=== PATIENT | female | born 1955 | race Caucasian/White ===

== ENCOUNTER 2018-10-21 14:06 | Inpatient (IN) | payer MEDICAID ==
--- NOTE | 2018-10-21 14:25 | ED Physician Chart ---
ED Chief Complaint/HPI - Patient Information Date Seen:: 10/21/18 Time Seen:: 14:30 Chief Complaint:: AMS History of Present Illness:: onset x 3 days of AMS/ALOC with abnormal labs today; no report of trauma, H/As, S/T, neck pain, cough, C/P, SOB, Abd. Pain, or urinary s/s Historian:: Patient, EMS Review:: Nurse's Note Reviewed, Old Chart Reviewed, EMS run form Reviewed ED Review of Systems - Review of Systems General/Constitutional: No fever, No chills, No weight loss, Weakness, No diaphoresis, No edema, No loss of appetite Skin: No skin lesions, No rash, No bruising Head: No headache, No light-headedness Eyes: No loss of vision, No pain, No diplopia ENT: No earache, No nasal drainage, No sore throat, No tinnitus Neck: No neck pain, No swelling, No thyromegaly, No stiffness, No mass noted Cardio Vascular: No chest pain, No palpitations, No PND, No orthopnea, No edema Pulmonary: No SOB, No cough, No sputum, No wheezing GI: No nausea, No vomiting, No diarrhea, No pain, No melena, No hematochezia, No constipation, No hematemesis G/U: No dysuria, No frequency, No hematuria, No nacturia Therapeutic Recreation Assistant: No vaginal discharge, No abnormal vaginal bleed, No contraction Musculoskeletal: No bone or joint pain, No back pain, No muscle pain Endocrine: No polyuria, No polydipsia Psychiatric: No prior psych history, No depression, No anxiety, No suicidal ideation, No homicidal ideation, No auditory hallucination, No visual hallucination Hematopoietic: No bruising, No lymphadenopathy Allergic/Immuno: No urticaria, No angioedema Neurological: No syncope, No focal symptoms, No weakness, No paresthesia, No headache, No seizure, No dizziness, No confusion, No vertigo ED Past Medical History - Past Medical History Obtainable: Yes Past Medical History: HTN, Dementia Family History: HTN Social History: Non Smoker, No Alcohol, No Drug Use, , Care Facility Surgical History: None Psychiatricy History: Dementia Medication: Reviewed Family Medical History - Family Member Mother History Unknown: Yes ED Physical Exam - Physical Examination General/Constitutional: Awake, Well-developed, well-nourished, Alert, No distress, GCS 15, Non-toxic appearing, Ambulatory Head: Atraumatic Eyes: Lids, conjuctiva normal, PERRL, EOMI Skin: Nl inspection, No rash, No skin lesions, No ecchymosis, Well hydrated, No lymphadenopathy ENMT: External ears, nose nl, TM canals nl, Nasal exam nl, Lips, teeth, gums nl , Oropharynx nl, Tonsils nl Neck: Nontender, Full ROM w/o pain, No JVD, No nuchal rigidity, No bruit, No mass, No stridor Other Neck comments:: supple; no meningeal signs; no cervical tenderness; no bruits Respiratory: Nl effort/Exclusion, Clear to Auscultation, No Wheeze/Rhonchi/Rales Cardio Vascular: RRR, No murmur, gallop, rubs, NL S1 S2, Carotid/Femoral/Distal pulses equal bilaterally GI: No tenderness/rebounding/guarding, No organomegaly, No hernia, Normal BS's, Nondistended, No mass/bruits, No McBurney tenderness Other GI comments:: no pulsatile masses : No CVA tenderness Extremities: No tenderness or effusion, Full ROM, normal strength in all extremities, No edema, Normal digits & nails Neuro/Psych: Alert/oriented, DTR's symmetric, Normal sensory exam, Normal motor strength, Judgement/insight normal, Mood normal, Normal gait, No focal deficits Misc: Normal back, No paraspinal tenderness ED Labs/Radiology/EKG Results - Lab Results Comments:: Reviewed - Radiology Results Comments:: CXR: COPD; NAD - EKG Interpretations EKG Time:: 14:28 Rate & Rhythm: 83; NSR Comments:: non-specific st-t changes ED Septic Shock - . Is Septic Shock (SBP<90, OR Lactate>4 mmol\L) present?: No ED Reassessment (Disposition) - Reassessment Reassessment Condition:: Improved - Diagnosis Diagnosis:: Anemia; Dehydration; Hypercalcemia; Hypoalbuminemia; Fever; Dementia; COPD; Hematuria; UTI; Sepsis - Aftercare/Follow up Instructions Aftercare/Follow-Up Instructions:: Counseled pt regarding lab results/diagnosis & need follow up, Counseled pt & family regarding lab results/diagnosis & need follow up - Patient Disposition Discharge/Transfer:: Acute Care w/in this hosp Accepting Physician:: Dr. Hodges Time Called:: 1600 Time Responded:: 16:00 Admitted to:: Med/Surg Spoke to:: Dr. Hodges Admitting Medical Physician:: Dr. Hodges Condition at Disposition:: Stable, Improved
--- NOTE | 2018-10-21 14:35 | Diagnostic Imaging Report ---
CHEST X-RAY: AP view INDICATION: pain COMPARISON: None FINDINGS: There is a large 4.6 cm mass of the right mid to upper lung. No pleural effusions. COPD changes are noted. Heart size normal. Degenerative changes of the spine are noted with scoliosis. No patient is mildly rotated. A catheter is noted possibly a shunt catheter. IMPRESSION: 4.6 cm mass along the right mid to right upper lung. Findings may be due to neoplastic process or less likely infectious process. Further assessment CT with IV contrast is recommended. Probable COPD changes. Results were relayed to the referring team on 10/21/2018 at 2:30 PM.
[2018-10-21 15:01] LABS: MEAN PLATELET VOLUME 8.3 fl; MONOCYTE ABSOLUTE 0.6 Th/cmm (0.3-1.0); RED CELL DISTRIBUTION WIDTH 17.3 % (11.5-20.0)
[2018-10-21 15:04] LABS: % BASOPHILS 0.5 % (0.0-2.0); % EOSINOPHILS 0.8 % (0.0-5.0); % MONOCYTES 8.8 % (2.0-10.0); % NEUTROPHILS 66.9 % (40.0-80.0); EOSINOPHILE ABSOLUTE 0.1 Th/cmm (0.1-0.4); HEMATOCRIT 26.7 % (41.0-60); HEMOGLOBIN 8.5 gm/dL (12-16); LYMPHOCYTE ABSOLUTE 1.6 Th/cmm (1.5-3.0); MEAN CORPUSCULAR HEMOGLOBIN 21.2 pg (27.0-31.0); MEAN CORPUSCULAR HGB CONC 31.7 pg (28.0-36.0); NEUTROPHILE ABSOLUTE 4.7 Th/cmm (1.8-8.0); PLATELET COUNT 613 Th/cmm (150-400)
[2018-10-21 15:12] LABS: INR 1.02 (0.5-1.4); PROTHROMBIN TIME (TEST) 10.6 SECONDS (9.5-11.5)
[2018-10-21 15:14] LABS: ALB/GLOB RATIO 0.7 (1.0-1.8); ALBUMIN 3.1 gm/dL (3.7-5.3); ALKALINE PHOSPHATASE 140 U/L (34-104); ANION GAP 10.4 (7.0-16.0); BILIRUBIN,TOTAL 0.3 mg/dL (0.3-1.0); BUN - UREA NITROGEN 27 mg/dL (7-25); CALCIUM SERUM 10.6 mg/dL (8.6-10.3); CHLORIDE 108 mEq/L (98-107); CREATININE - SERUM 0.7 mg/dL (0.6-1.2); CREATININE KINASE 11 U/L (30-223); GFR AFRICAN-AMERICAN > 60.0 ml/min (>90); GFR NON AFRICAN-AMERICAN > 60.0 ml/min; GLUCOSE 136 mg/dL (70-105); POTASSIUM SERUM 4.4 mEq/L (3.5-5.1); SGOT 15 U/L (13-39); SGPT/ALT 11 U/L (7-52); SODIUM SERUM 140 mEq/L (136-145); TOTAL PROTEIN,SERUM 7.9 gm/dL (6.0-8.3)
[2018-10-21 15:20] LABS: TROP I < 0.01 ng/mL (0.01-0.05)
[2018-10-21 15:22] LABS: MEAN CELL VOLUME 66.8 fl (81-100)
[2018-10-21] MEDS ORDERED: Sodium Chloride 0.9% 1,000 ML IV ONE (15:25)
[2018-10-21 15:28] LABS: URINE SOURCE CATH
[2018-10-21 15:30] LABS: URINE BILIRUBIN NEGATIVE (NEGATIVE); URINE BLOOD TRACE (NEGATIVE); URINE GLUCOSE (UA) NEGATIVE (NEGATIVE); URINE KETONE NEGATIVE (NEGATIVE); URINE LEUKOCYTE ESTERASE TRACE (NEGATIVE); URINE MICROSCOPIC INDICATED? YES; URINE NITRATE NEGATIVE (NEGATIVE); URINE PROTEIN NEGATIVE (NEGATIVE)
[2018-10-21 15:31] LABS: URINE CLARITY CLEAR (CLEAR); URINE COLOR YELLOW
[2018-10-21 15:42] LABS: URINE BACTERIA 1+ /hpf (NONE SEEN); URINE EPITHELIAL CELLS MODERATE /lpf (FEW)
[2018-10-21] MEDS ORDERED: cefTRIAXone 1 GM in Sodium Chloride 0.9% 50 ML IV ONE (15:54)
[2018-10-21] MEDS ORDERED: Haloperidol Lactate 5 mg/mL 1mL Vial IVP ONE (17:25)
[2018-10-21] MEDS ORDERED: Haloperidol Lactate 5 mg/mL 1mL Vial ONE (17:33)
[2018-10-21 22:05] VITALS: BP 165/98
[2018-10-21] MEDS: D5-0.45NS 1,000 ML IV SCH (22:30)
[2018-10-21] MEDS ORDERED: Acetaminophen 500 MG TAB PO PRN (23:47)
[2018-10-21] MEDS ORDERED: Fleet Enema 135 mL RC PRN (23:48)
[2018-10-21] MEDS ORDERED: Magnesium Hydroxide (MOM) 30 mL UDC PO PRN (23:48)
[2018-10-22 06:50] LABS: INR 1.04 (0.5-1.4); PROTHROMBIN TIME (TEST) 10.8 SECONDS (9.5-11.5)
[2018-10-22 07:00] LABS: ANION GAP 9.8 (7.0-16.0); BUN - UREA NITROGEN 20 mg/dL (7-25); CALCIUM SERUM 10.6 mg/dL (8.6-10.3); CARBON DIOXIDE 24.2 mEq/L (21.0-31.0); CHLORIDE 110 mEq/L (98-107); CHOLESTEROL 90 mg/dL (<200); CREATININE - SERUM 0.6 mg/dL (0.6-1.2); GFR AFRICAN-AMERICAN > 60.0 ml/min (>90); GFR NON AFRICAN-AMERICAN > 60.0 ml/min; GLUCOSE 102 mg/dL (70-105); HDL -HIGH DENSITY LIPOPROTEIN 27 mg/dL (23-92); SODIUM SERUM 140 mEq/L (136-145); TRIGLYCERIDES 77 mg/dL (<150)
[2018-10-22 07:03] LABS: % BASOPHILS 0.4 % (0.0-2.0); % EOSINOPHILS 0.9 % (0.0-5.0); % LYMPHOCYTES 36.6 % (20.0-50.0); % MONOCYTES 10.5 % (2.0-10.0); % NEUTROPHILS 51.6 % (40.0-80.0); HEMATOCRIT 26.6 % (41.0-60); HEMOGLOBIN 8.4 gm/dL (12-16); MEAN CORPUSCULAR HEMOGLOBIN 21.1 pg (27.0-31.0); MEAN CORPUSCULAR HGB CONC 31.4 pg (28.0-36.0); MEAN PLATELET VOLUME 8.2 fl; MONOCYTE ABSOLUTE 0.6 Th/cmm (0.3-1.0); NEUTROPHILE ABSOLUTE 2.8 Th/cmm (1.8-8.0); PLATELET COUNT 554 Th/cmm (150-400); RED BLOOD COUNT 3.96 Mil/cmm (3.80-5.10); RED CELL DISTRIBUTION WIDTH 17.8 % (11.5-20.0)
[2018-10-22 07:04] LABS: MEAN CELL VOLUME 67.1 fl (81-100); WHITE BLOOD COUNT 5.4 Th/cmm (4.8-10.8)
[2018-10-22] MEDS: Multivitamin w/ Minerals Tab PO SCH (08:43)
--- NOTE | 2018-10-22 08:43 | History & Physical ---
ADMIT DATE: 10/22/2018 CHIEF COMPLAINT: Altered level of consciousness for 3 days. REVIEW OF SYSTEMS: GENERAL: This is a 63-year-old female. No fever. No weakness. HEAD: No headache or dizziness. EYES: No eye pain, no blurring of vision. NECK: No neck pain. No nuchal rigidity. CHEST: No chest pain or palpitation. PULMONARY: No coughing. No shortness of breath. GASTROINTESTINAL: No abdominal pain, no constipation or diarrhea. MUSCULOSKELETAL: No muscle pain, no joint pain. SOCIAL HISTORY: The patient lives in a [facility] prior to hospitalization. FAMILY HISTORY: Unremarkable. PAST SURGICAL HISTORY: Unremarkable. PAST MEDICAL HISTORY: Includes hypertension, osteoarthritis. PSYCHIATRIC HISTORY: Includes dementia. VITAL SIGNS: Temperature 98.6, heart rate 87, blood pressure 162/85, respirations 18, 97% on room air. PHYSICAL EXAMINATION: GENERAL: This is a 63-year-old female that appears as stated in no acute distress. HEENT: Head is atraumatic and normocephalic. Eyes: Bilateral conjunctivae are clear. Bilateral pupils are equally round and reactive. NECK: Supple. No JVD. CARDIOVASCULAR: S1 and S2, without murmur. PULMONARY: Clear to auscultation. GASTROINTESTINAL: Soft and nontender without guarding. Positive bowel sounds. MUSCULOSKELETAL: No clubbing. No cyanosis noted. ASSESSMENT: 1. Dehydration. 2. Anemia. 3. Chronic obstructive pulmonary disease. 4. Right upper lung mass. 5. Dementia. PLAN: We will admit the patient to inpatient. We will provide 1:1 sitter due to increase in agitation. We will start the patient with IV fluids for rehydration. We will follow up with a right lung mass and consider CT scan of the chest. We will consult with GI for anemia. We will get a psychiatric consult with the medication reconciliation accordingly. Treatment plans were discussed with the patient's nurse. Treatment plans were discussed with Dr. Hodges. JOB# [id number]
[2018-10-22] MEDS ORDERED: Non-Formulary Item 1 EA (Cranberry Fruit [Cranberry] 450 MG) PO SCH (09:00)
[2018-10-22] MEDS ORDERED: VTE Chemical Prophylaxis Screen/Admission MC PRN (09:01)
[2018-10-22] MEDS: Heparin Sod 5,000Units/ML 5,000 UNITS/ML VIAL SUBQ SCH ×2 (09:29→20:55)
--- NOTE | 2018-10-22 10:01 | Diagnostic Imaging Report ---
Exam: CT examination of chest. HISTORY: Right upper lung mass. Total DLP equals 170 CTDI equals 4.5 Findings: Multiple contiguous thin section of the chest were obtained from thoracic outlet to the upper abdomen without the administration of contrast material therefore the study somewhat limited. No prior studies available comparison. There is enlargement of the right lobe of thyroid. Clinical correlation recommended. The study demonstrates a large homogeneous mass in the right upper lung peripherally measuring 4.8 x 3.4 cm in diameter. The mass extends into the right hilar area. The suggestion of the lung neoplasm. The lung parenchyma is well aerated bilaterally. There is no evidence for pneumonia or effusion. Mediastinal structures midline. The aortic arch calcified. Bony structures demonstrate no evidence for lytic or blastic changes. There is evidence for degenerative changes lower thoracic spine with scoliosis to the left and osteophytic spurring and bridging of the distal thoracic vertebrae CT-guided biopsy is recommended. The visualized the upper abdomen demonstrates a low density area in the right lobe of liver measuring 2.7 cm diameter. Clinical correlation CT examination with contrast recommended neoplastic component cannot be excluded. The visualized adrenal glands intact. IMPRESSION: 3.4 x 4.8cm right upper peripheral lung mass extending into the right hilar area. The finding suggestive of neoplasm. CT examination with contrast and CT guided biopsies recommended. Low density area in the liver might represent a cyst also neoplastic component cannot be excluded.
[2018-10-22 13:58] LABS: RBC RETICULOCYTE COUNT 3.96 Mil/cmm
[2018-10-22 13:59] LABS: ABSOLUTE RETICULOCYTE 19.8 Th/cmm; CORRECTED RETICULOCYTE COUNT 0.3 % (0.5-1.5); HEMATOCRIT 26.6 % (33.0-45.0); RETICULOCYTES % COUNTED 0.5 % (0.5-1.5)
[2018-10-22] MEDS: D5-0.45NS 1,000 ML IV SCH (18:33)
--- NOTE | 2018-10-22 21:54 | Consultation ---
DATE OF CONSULTATION: 10/21/2018 REASON FOR CONSULTATION: Severe anemia. HISTORY OF PRESENT ILLNESS: This consult was obtained through the courtesy of Dr. Hodges for this 63-year-old, who presented to the hospital for altered level of consciousness, found to be severely anemic. GI consult was called in for further evaluation. Apparently, the patient lives in a [facility]. She was sent from there for change in mental status and she was found to be anemic here. PAST MEDICAL HISTORY: Hypertension and dementia. PAST SURGICAL HISTORY: Not known, but she has a scar overlying her chest, might be a CABG, but it is not typical scar. She also claims she has some abdominal surgery. SOCIAL HISTORY: Nonsmoker, nonalcoholic, IV drug abuser. FAMILY HISTORY: Noncontributory. ALLERGIES: No known drug allergies. MEDICATIONS: The patient is on Tylenol, bisacodyl, donepezil, subcutaneous heparin, lorazepam, milk of magnesia, Lopressor. REVIEW OF SYSTEMS: Unobtainable, but the patient is thin, cachectic. PHYSICAL EXAMINATION: GENERAL: The patient is awake, oriented to self. VITAL SIGNS: Blood pressure is 114/71, heart rate 90, respiratory rate 18, temperature 99.1. HEAD AND NECK: Pupils reactive to light. Extraocular muscles could not be tested. Oral cavity, no lesion. NECK: Supple. CHEST: Good air entry. There is scar overlying the midline. LUNGS: Clear to auscultation. CARDIOVASCULAR: Regular rate and rhythm. No murmur or gallop. ABDOMEN: Soft, positive bowel sounds, nontender, nondistended, no hepatosplenomegaly. EXTREMITIES: Lower extremities, no edema. CENTRAL NERVOUS SYSTEM: The patient is moving 4 extremities, grossly nonfocal. LABORATORY DATA: Hemoglobin 8.4, hematocrit 26.6. Normal liver enzymes. IMPRESSION: A 63-year-old with severe anemia. ASSESSMENT: Anemia, rule out gastrointestinal blood loss versus hemolysis versus chronic disease. RECOMMENDATIONS: 1. We will check serum iron, TIBC, ferritin, B12, folic acid, and haptoglobin. 2. We will check stool for occult blood. 3. The patient is going to have an endoscopy and colonoscopy most likely Wednesday or Wednesday depending on the availability of consent and feasibility of prep. 4. Other medical problem such as dementia, hypertension, etc. as per Dr. Hodges. Thank you, Dr. Hodges, for allowing me to participate in the care of the patient. If you have any further questions, please let me know. [facility]# [id number]
--- NOTE | 2018-10-22 22:42 | Consultation ---
DATE OF CONSULTATION: 10/22/[address] Hodges. Thank you very much for this consultation. HISTORY OF PRESENT ILLNESS: This is a 63-year-old female, confused, who was called to see for consultation because of abnormal CT of the chest. The patient has some altered level of consciousness. Apparently, she is getting some agitation as well. PAST MEDICAL HISTORY: As above. SOCIAL HISTORY: History of smoking. Says she used to smoke 2 packs a day and now she smokes less than that. A smoker for many years, could not give me the exact number of years. Denies shortness of breath or chest pain. REVIEW OF SYSTEMS: Unable to obtain because of the patient's condition PHYSICAL EXAMINATION: GENERAL: He is awake, alert, not in acute distress. VITAL SIGNS: Temperature 98.3, pulse 80, respirations 18, blood pressure 107/72, saturation 98% on room air. HEENT: Atraumatic, normocephalic. Pupils reactive to light and accommodation. Ears, nose, and throat are normal. NECK: Supple. No JVD. CHEST: There are good breath sounds. No wheezing, no crackles. HEART: Regular rhythm. ABDOMEN: Soft. EXTREMITIES: No edema. LABORATORY DATA: WBC 5.4, hemoglobin 8.4. Sodium 140, potassium 4.0, BUN 20, creatinine 0.6. CT chest: There are right upper lobe lung mass located peripherally. IMPRESSION: This is a 63-year-old female most likely with lung cancer. PLAN: I discussed with the patient, she needs to have a CT-guided biopsy. I am not sure how understanding she is to this diagnosis and to the overall health. I agree with psychiatric evaluation as well and we ordered a CT-guided biopsy. The patient agrees to it. Thank you very much for this consultation. I will follow the patient with you. JOB# [id number]
[2018-10-23 06:42] LABS: % BASOPHILS 0.8 % (0.0-2.0); % EOSINOPHILS 0.6 % (0.0-5.0); % LYMPHOCYTES 44.7 % (20.0-50.0); % MONOCYTES 8.2 % (2.0-10.0); % NEUTROPHILS 45.7 % (40.0-80.0); HEMATOCRIT 27.8 % (41.0-60); HEMOGLOBIN 8.7 gm/dL (12-16); LYMPHOCYTE ABSOLUTE 2.4 Th/cmm (1.5-3.0); MEAN CORPUSCULAR HGB CONC 31.2 pg (28.0-36.0); MEAN PLATELET VOLUME 8.7 fl; MONOCYTE ABSOLUTE 0.4 Th/cmm (0.3-1.0); NEUTROPHILE ABSOLUTE 2.6 Th/cmm (1.8-8.0); PLATELET COUNT 527 Th/cmm (150-400); RED BLOOD COUNT 4.14 Mil/cmm (3.80-5.10); RED CELL DISTRIBUTION WIDTH 17.5 % (11.5-20.0); WHITE BLOOD COUNT 5.4 Th/cmm (4.8-10.8)
[2018-10-23 06:43] LABS: MEAN CELL VOLUME 67.2 fl (81-100)
[2018-10-23 06:56] LABS: ALB/GLOB RATIO 0.6 (1.0-1.8); ALKALINE PHOSPHATASE 142 U/L (34-104); ANION GAP 11.1 (7.0-16.0); BILIRUBIN,TOTAL 0.4 mg/dL (0.3-1.0); BUN - UREA NITROGEN 19 mg/dL (7-25); CALCIUM SERUM 11.2 mg/dL (8.6-10.3); CHLORIDE 111 mEq/L (98-107); CREATININE - SERUM 0.7 mg/dL (0.6-1.2); GFR AFRICAN-AMERICAN > 60.0 ml/min (>90); GFR NON AFRICAN-AMERICAN > 60.0 ml/min; GLUCOSE 99 mg/dL (70-105); POTASSIUM SERUM 4.1 mEq/L (3.5-5.1); SGOT 17 U/L (13-39); SGPT/ALT 14 U/L (7-52); SODIUM SERUM 142 mEq/L (136-145)
[2018-10-23] MEDS ORDERED: Magnesium Citrate 1.75 GM/300 mL Bottle PO ONE (08:00)
[2018-10-23] MEDS: Heparin Sod 5,000Units/ML 5,000 UNITS/ML VIAL SUBQ SCH ×2 (09:08→21:17)
[2018-10-23] MEDS: Multivitamin w/ Minerals Tab PO SCH (09:14)
--- NOTE | 2018-10-23 10:20 | GI Progress Note ---
Subjective - Review of Systems Service Date: 10/23/18 Events since last encounter: nO EVENTS Subjective: No active complaints Objective - Results Result Diagrams: 10/23/18 06:10 10/23/18 06:10 Recent Labs: Laboratory Last Values WBC 5.4 Th/cmm (4.8-10.8) 10/23/18 06:10 RBC 4.14 Mil/cmm (3.80-5.10) 10/23/18 06:10 Hgb 8.7 gm/dL (12-16) L 10/23/18 06:10 Hct 27.8 % (41.0-60) L 10/23/18 06:10 MCV 67.2 fl (81-100) L 10/23/18 06:10 MCH 21.0 pg (27.0-31.0) L 10/23/18 06:10 MCHC Differential 31.2 pg (28.0-36.0) 10/23/18 06:10 RDW 17.5 % (11.5-20.0) 10/23/18 06:10 Plt Count 527 Th/cmm (150-400) H 10/23/18 06:10 MPV 8.7 fl 10/23/18 06:10 Neutrophils % 45.7 % (40.0-80.0) 10/23/18 06:10 Lymphocytes % 44.7 % (20.0-50.0) 10/23/18 06:10 Monocytes % 8.2 % (2.0-10.0) 10/23/18 06:10 Eosinophils % 0.6 % (0.0-5.0) 10/23/18 06:10 Basophils % 0.8 % (0.0-2.0) 10/23/18 06:10 Total Retics Counted 0.5 % (0.5-1.5) 10/22/18 06:25 Absolute Retic 19.8 Th/cmm 10/22/18 06:25 Corrected Retic Count 0.3 % (0.5-1.5) L 10/22/18 06:25 PT 10.8 SECONDS (9.5-11.5) 10/22/18 06:25 INR 1.04 (0.5-1.4) 10/22/18 06:25 PTT (Actin FS) 27.4 SECONDS (26.0-38.0) 10/22/18 06:25 Sodium 142 mEq/L (136-145) 10/23/18 06:10 Potassium 4.1 mEq/L (3.5-5.1) 10/23/18 06:10 Chloride 111 mEq/L (98-107) H 10/23/18 06:10 Carbon Dioxide 24.0 mEq/L (21.0-31.0) 10/23/18 06:10 Anion Gap 11.1 (7.0-16.0) 10/23/18 06:10 BUN 19 mg/dL (7-25) 10/23/18 06:10 Creatinine 0.7 mg/dL (0.6-1.2) 10/23/18 06:10 Est GFR ( Amer) > 60.0 ml/min (>90) 10/23/18 06:10 Est GFR (Non-Af Amer) > 60.0 ml/min 10/23/18 06:10 BUN/Creatinine Ratio 27.1 10/23/18 06:10 Glucose 99 mg/dL (70-105) 10/23/18 06:10 Whole Bld Lactic Acid 1.40 mmol/L (0.60-1.99) 10/21/18 14:45 Calcium 11.2 mg/dL (8.6-10.3) H 10/23/18 06:10 Total Bilirubin 0.4 mg/dL (0.3-1.0) 10/23/18 06:10 AST 17 U/L (13-39) 10/23/18 06:10 ALT 14 U/L (7-52) 10/23/18 06:10 Alkaline Phosphatase 142 U/L (34-104) H 10/23/18 06:10 Creatine Kinase 11 U/L (30-223) L 10/21/18 14:45 Troponin I < 0.01 ng/mL (0.01-0.05) L 10/21/18 14:45 Total Protein 8.0 gm/dL (6.0-8.3) 10/23/18 06:10 Albumin 3.0 gm/dL (3.7-5.3) L 10/23/18 06:10 Globulin 5.0 gm/dL 10/23/18 06:10 Albumin/Globulin Ratio 0.6 (1.0-1.8) L 10/23/18 06:10 Triglycerides 77 mg/dL (<150) 10/22/18 06:25 Cholesterol 90 mg/dL (<200) 10/22/18 06:25 LDL Cholesterol Direct 53 mg/dL (75-193) L 10/22/18 06:25 HDL Cholesterol 27 mg/dL (23-92) 10/22/18 06:25 TSH 0.02 uIU/ml (0.34-5.60) L 10/22/18 06:25 Urine Source CATH 10/21/18 15:20 Urine Color YELLOW 10/21/18 15:20 Urine Clarity CLEAR (CLEAR) 10/21/18 15:20 Urine pH 6.0 (4.6 - 8.0) 10/21/18 15:20 Ur Specific [place] 1.020 (1.005-1.030) 10/21/18 15:20 Urine Protein NEGATIVE mg/dL (NEGATIVE) 10/21/18 15:20 Urine Glucose (UA) NEGATIVE mg/dL (NEGATIVE) 10/21/18 15:20 Urine Ketones NEGATIVE mg/dL (NEGATIVE) 10/21/18 15:20 Urine Blood TRACE (NEGATIVE) 10/21/18 15:20 Urine Nitrate NEGATIVE (NEGATIVE) 10/21/18 15:20 Urine Bilirubin NEGATIVE (NEGATIVE) 10/21/18 15:20 Urine Urobilinogen 1.0 E.U./dL (0.2 - 1.0) 10/21/18 15:20 Ur Leukocyte Esterase TRACE (NEGATIVE) H 10/21/18 15:20 Urine RBC 2-5 /hpf (0-5) 10/21/18 15:20 Urine WBC 2-5 /hpf (0-5) 10/21/18 15:20 Ur Epithelial Cells MODERATE /lpf (FEW) 10/21/18 15:20 Urine Bacteria 1+ /hpf (NONE SEEN) H 10/21/18 15:20 - Physical Exam Vitals and I&O: Vital Signs Temp 98.8 F 10/23/18 05:00 Pulse 66 10/23/18 05:00 Resp 18 10/23/18 05:00 BP 95/52 10/23/18 05:00 Pulse Ox 98 10/23/18 05:00 Intake & Output 0510/23/18 10/23/18 18:59 06:59 18:59 Intake Total 1600 200 Balance 1600 200 Weight (lbs) 45.813 kg 45.813 kg Intake: Intake, IV Amount 1000 D5-0.45NS 1,000 ml @ 50 1000 mls/hr IV .Q20H [facility] Rx#: [id number] Oral 600 200 Other: # Voids 2 2 # Bowel Movements 0 Weight Source Bedscale Bedscale Active Medications: Current Medications Acetaminophen (Tylenol) 650 mg PO Q6H PRN PRN Reason: MILD PAIN OR TEMP > 100.5 Stop: 12/21/18 00:39 Bisacodyl (Dulcolax 10 Mg Supp) 10 mg RC DAILY PRN PRN Reason: IF MOM INEFFECTIVE Stop: 12/20/18 23:46 Donepezil HCl (Aricept) 10 mg PO HS ELLYN Stop: 12/21/18 20:59 Last Admin: 10/22/18 20:55 Dose: 10 mg Heparin Sodium (Porcine) (Heparin) 5,000 units SUBQ Q12HR [facility] Stop: 12/21/18 08:59 Last Admin: 10/23/18 09:08 Dose: 5,000 units Dextrose/Sodium Chloride (D5-0.45ns) 1,000 mls @ 50 mls/hr IV .Q20H [facility] Stop: 12/20/18 21:38 Last Admin: 10/22/18 18:33 Dose: 50 mls/hr Lorazepam (Ativan) 1 mg IVP Q4H PRN; Protocol PRN Reason: Agitation Stop: 12/21/18 08:08 Last Admin: 10/22/18 15:53 Dose: 1 mg Magnesium Hydroxide (Milk Of Magnesia) 30 ml PO HS PRN PRN Reason: Constipation Stop: 12/20/18 23:47 Metoprolol Tartrate (Lopressor) 25 mg PO Q12H ELLYN Stop: 12/20/18 23:44 Last Admin: 10/23/18 00:03 Dose: Not Given Miscellaneous (Vte Chemical Prophylaxis Screen/ Admission) 1 ea MC PRN PRN PRN Reason: PROTOCOL Stop: 12/21/18 09:00 Mupirocin (Bactroban Oint) 1 appl NS BID ELLYN Stop: 10/27/18 17:01 Last Admin: 10/23/18 09:13 Dose: 1 appl Sodium Phosphate (Fleet Enema) 135 ml RC Q48H PRN PRN Reason: IF DULCOLAX INEFFECTIVE Stop: 12/20/18 23:47 General: Alert, No acute distress Neck: Supple Cardiovascular: Regular rate, Normal S1 Lungs: Clear to auscultation Abdomen: Bowel sounds, Soft, no Tender, no Mass Assessment/Plan - Problem List Patient Problems: All Active Problems ABNORMAL LABORATORY FINDINGS (HB, HCT) (Acute) - Assessment Assessment: 1. Severe anemia - Plan Plan: 1. Severe anemia Will need GI w/u after the lung biopsy and if she is willing to take the prep
--- NOTE | 2018-10-23 10:41 | Internal Medicine Prog Note ---
Internal Medicine Subjective - Subjective Patient seen and examined:: chart reviewed Patient is:: awake, confused, other (pt admitted with altered level of consciousness ,with abnormal ct of chest lung mass) Per staff patient has:: no adverse event Internal Medicine Objective - Results Result Diagrams: 10/23/18 06:10 10/23/18 06:10 Recent Labs: Laboratory Last Values WBC 5.4 Th/cmm (4.8-10.8) 10/23/18 06:10 RBC 4.14 Mil/cmm (3.80-5.10) 10/23/18 06:10 Hgb 8.7 gm/dL (12-16) L 10/23/18 06:10 Hct 27.8 % (41.0-60) L 10/23/18 06:10 MCV 67.2 fl (81-100) L 10/23/18 06:10 MCH 21.0 pg (27.0-31.0) L 10/23/18 06:10 MCHC Differential 31.2 pg (28.0-36.0) 10/23/18 06:10 RDW 17.5 % (11.5-20.0) 10/23/18 06:10 Plt Count 527 Th/cmm (150-400) H 10/23/18 06:10 MPV 8.7 fl 10/23/18 06:10 Neutrophils % 45.7 % (40.0-80.0) 10/23/18 06:10 Lymphocytes % 44.7 % (20.0-50.0) 10/23/18 06:10 Monocytes % 8.2 % (2.0-10.0) 10/23/18 06:10 Eosinophils % 0.6 % (0.0-5.0) 10/23/18 06:10 Basophils % 0.8 % (0.0-2.0) 10/23/18 06:10 Total Retics Counted 0.5 % (0.5-1.5) 10/22/18 06:25 Absolute Retic 19.8 Th/cmm 10/22/18 06:25 Corrected Retic Count 0.3 % (0.5-1.5) L 10/22/18 06:25 PT 10.8 SECONDS (9.5-11.5) 10/22/18 06:25 INR 1.04 (0.5-1.4) 10/22/18 06:25 PTT (Actin FS) 27.4 SECONDS (26.0-38.0) 10/22/18 06:25 Sodium 142 mEq/L (136-145) 10/23/18 06:10 Potassium 4.1 mEq/L (3.5-5.1) 10/23/18 06:10 Chloride 111 mEq/L (98-107) H 10/23/18 06:10 Carbon Dioxide 24.0 mEq/L (21.0-31.0) 10/23/18 06:10 Anion Gap 11.1 (7.0-16.0) 10/23/18 06:10 BUN 19 mg/dL (7-25) 10/23/18 06:10 Creatinine 0.7 mg/dL (0.6-1.2) 10/23/18 06:10 Est GFR ( Amer) > 60.0 ml/min (>90) 10/23/18 06:10 Est GFR (Non-Af Amer) > 60.0 ml/min 10/23/18 06:10 BUN/Creatinine Ratio 27.1 10/23/18 06:10 Glucose 99 mg/dL (70-105) 10/23/18 06:10 Whole Bld Lactic Acid 1.40 mmol/L (0.60-1.99) 10/21/18 14:45 Calcium 11.2 mg/dL (8.6-10.3) H 10/23/18 06:10 Total Bilirubin 0.4 mg/dL (0.3-1.0) 10/23/18 06:10 AST 17 U/L (13-39) 10/23/18 06:10 ALT 14 U/L (7-52) 10/23/18 06:10 Alkaline Phosphatase 142 U/L (34-104) H 10/23/18 06:10 Creatine Kinase 11 U/L (30-223) L 10/21/18 14:45 Troponin I < 0.01 ng/mL (0.01-0.05) L 10/21/18 14:45 Total Protein 8.0 gm/dL (6.0-8.3) 10/23/18 06:10 Albumin 3.0 gm/dL (3.7-5.3) L 10/23/18 06:10 Globulin 5.0 gm/dL 10/23/18 06:10 Albumin/Globulin Ratio 0.6 (1.0-1.8) L 10/23/18 06:10 Triglycerides 77 mg/dL (<150) 10/22/18 06:25 Cholesterol 90 mg/dL (<200) 10/22/18 06:25 LDL Cholesterol Direct 53 mg/dL (75-193) L 10/22/18 06:25 HDL Cholesterol 27 mg/dL (23-92) 10/22/18 06:25 TSH 0.02 uIU/ml (0.34-5.60) L 10/22/18 06:25 Urine Source CATH 10/21/18 15:20 Urine Color YELLOW 10/21/18 15:20 Urine Clarity CLEAR (CLEAR) 10/21/18 15:20 Urine pH 6.0 (4.6 - 8.0) 10/21/18 15:20 Ur Specific [place] 1.020 (1.005-1.030) 10/21/18 15:20 Urine Protein NEGATIVE mg/dL (NEGATIVE) 10/21/18 15:20 Urine Glucose (UA) NEGATIVE mg/dL (NEGATIVE) 10/21/18 15:20 Urine Ketones NEGATIVE mg/dL (NEGATIVE) 10/21/18 15:20 Urine Blood TRACE (NEGATIVE) 10/21/18 15:20 Urine Nitrate NEGATIVE (NEGATIVE) 10/21/18 15:20 Urine Bilirubin NEGATIVE (NEGATIVE) 10/21/18 15:20 Urine Urobilinogen 1.0 E.U./dL (0.2 - 1.0) 10/21/18 15:20 Ur Leukocyte Esterase TRACE (NEGATIVE) H 10/21/18 15:20 Urine RBC 2-5 /hpf (0-5) 10/21/18 15:20 Urine WBC 2-5 /hpf (0-5) 10/21/18 15:20 Ur Epithelial Cells MODERATE /lpf (FEW) 10/21/18 15:20 Urine Bacteria 1+ /hpf (NONE SEEN) H 10/21/18 15:20 - Physical Exam Vitals and I&O: Vital Signs Temp 98.6 F 10/23/18 09:00 Pulse 89 10/23/18 09:00 Resp 18 10/23/18 09:00 BP 118/70 10/23/18 09:00 Pulse Ox 95 10/23/18 09:00 Intake & Output 10/22/18 10/23/18 10/23/18 18:59 06:59 18:59 Intake Total 1600 200 Balance 1600 200 Weight (lbs) 45.813 kg 45.813 kg Intake: Intake, IV Amount 1000 D5-0.45NS 1,000 ml @ 50 1000 mls/hr IV .Q20H [facility] Rx#: [id number] Oral 600 200 Other: # Voids 2 2 # Bowel Movements 0 Weight Source Bedscale Bedscale Active Medications: Current Medications Acetaminophen (Tylenol) 650 mg PO Q6H PRN PRN Reason: MILD PAIN OR TEMP > 100.5 Stop: 12/21/18 00:39 Bisacodyl (Dulcolax 10 Mg Supp) 10 mg RC DAILY PRN PRN Reason: IF MOM INEFFECTIVE Stop: 12/20/18 23:46 Donepezil HCl (Aricept) 10 mg PO HS [facility] Stop: 12/21/18 20:59 Last Admin: 10/22/18 20:55 Dose: 10 mg Heparin Sodium (Porcine) (Heparin) 5,000 units SUBQ Q12HR [facility] Stop: 12/21/18 08:59 Last Admin: 10/23/18 09:08 Dose: 5,000 units Dextrose/Sodium Chloride (D5-0.45ns) 1,000 mls @ 50 mls/hr IV .Q20H [facility] Stop: 12/20/18 21:38 Last Admin: 10/22/18 18:33 Dose: 50 mls/hr Lorazepam (Ativan) 1 mg IVP Q4H PRN; Protocol PRN Reason: Agitation Stop: 12/21/18 08:08 Last Admin: 10/22/18 15:53 Dose: 1 mg Magnesium Hydroxide (Milk Of Magnesia) 30 ml PO HS PRN PRN Reason: Constipation Stop: 12/20/18 23:47 Metoprolol Tartrate (Lopressor) 25 mg PO Q12H [facility] Stop: 12/20/18 23:44 Last Admin: 10/23/18 00:03 Dose: Not Given Miscellaneous (Vte Chemical Prophylaxis Screen/ Admission) 1 ea MC PRN PRN PRN Reason: PROTOCOL Stop: 12/21/18 09:00 Mupirocin (Bactroban Oint) 1 appl NS BID [facility] Stop: 10/27/18 17:01 Last Admin: 10/23/18 09:13 Dose: 1 appl Sodium Phosphate (Fleet Enema) 135 ml RC Q48H PRN PRN Reason: IF DULCOLAX INEFFECTIVE Stop: 12/20/18 23:47 General: other (awake confused in no distress) HEENT: NC/AT Neck: Supple Lungs: CTAB Cardiovascular: RRR, Normal S1, Normal S2 Abdomen: soft, non-tender Extremities: clear Neurological: no change Internal Medicine Assmt/Plan - Assessment Assessment: dehydration lung mass r/o lung ca copd dementia - Plan Plan: as per surgeon biopsy sitter for safety psych support as per order sheet Nutritional Asmnt/Malnutr-PDOC - Dietary Evaluation Malnutrition Findings (Please click <Entered> for more info): Nutritional Asmnt/Malnutrition Start: 10/22/18 11: 28 Text: Status: Complete Freq: Protocol: Document 10/22/18 11:28 BIANCA (Rec: 10/22/18 11:44 MMFREDERICK CURRY- [email or web address]) Nutritional Asmnt/Malnutrition Patient General Information Nutritional Screening High Risk Diagnosis Anemia Pertinent Medical Hx/Surgical Hx HTN, osteoarthritis, dementia Subjective Information Patient with 1:1 sitter. 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 Current Diet Order/ Nutrition Support 2gm Sodium Chopped Patient / S.O Not Indicated Pertinent Medications dulcolax, D5-0.45NS @50 ml/hr, MOM, Fleet enema Pertinent Labs (10/22) Ca 10.6 (10/21) Albumin 3.1 Nutritional Hx/Data Height 1.65 m Height (Calculated Centimeters) 165.1 Current Weight (lbs) 42.638 kg Weight (Calculated Kilograms) 42.6 Weight (Calculated Grams) 67109.7 [place] Body Weight 125 % [place] Body Weight 75 Body Mass Index (BMI) 15.6 Recent Weight Change No Weight Status Underweight GI Symptoms GI Symptoms None Last BM none noted in EMR since admission Difficult in: None Food Allergies No Cultural/Ethnic/Hindu Belief None indicated Usual diet at home unknown Skin Integrity/Comment: Meredith 16 Current %PO Good (75-100%) Estimated Nutritional Goals BEE in Kcals: Adj wt of IBW Calories/Kcals/Kg 56.8 IBW 25-30 kcal/kg Kcals Calculated ~0652-0821 kcal/day Protein: Adj wt of IBW Protein g/k.8 gm/kg using IBW Protein Calculated ~45-55 gm/day Fluid: ml ~2168-0155 ml/day (1 ml/kcal) Nutritional Problem 1. Problem Problem Underweight related to Etiology possible inadequate intake aeb Signs/Symptoms: BMI 15.6 Intervention/Recommendation Comments 1. Continue 2gm sodium, chopped diet as tolerated by patient due to HTN. 2. Encourage oral intake and provide assistance with meals as needed. 3. Will hold off on supplements at this time even with low BMI due to patient's adequate oral intake and good appetite. Expected Outcomes/Goals Expected Outcomes/Goals Oral intake >75% of meals, weight gain toward IBW, nutrition related labs WNL F/U MR 10/25-
[2018-10-24] MEDS: Heparin Sod 5,000Units/ML 5,000 UNITS/ML VIAL SUBQ SCH ×2 (09:31→20:42)
[2018-10-24] MEDS: Multivitamin w/ Minerals Tab PO SCH (09:31)
[2018-10-24] MEDS: D5-0.45NS 1,000 ML IV SCH ×2 (09:33→10:39)
--- NOTE | 2018-10-24 10:03 | Progress Notes ---
DATE: 10/23/2018 OBJECTIVE: GENERAL: The patient appears to be confused, does not appear in acute distress. VITAL SIGNS: Temperature 98.4, pulse 76, respirations 18, blood pressure 117/57, saturation 96%. CHEST: Good breath sounds. No wheezes or crackles. HEART: Regular rate and rhythm. ABDOMEN: Soft and nontender. EXTREMITIES: No edema. IMPRESSION: 1. Respiratory: Chronic obstructive pulmonary disease. 2. Lung mass. 3. Psychotic disorder. 4. Dementia. PLAN: The patient needs CT-guided biopsy. The patient appears to understand and is happy with her and I will get addiction social worker involved and see if family is available. Continue supportive care. JOB# [id number]
--- NOTE | 2018-10-24 10:07 | Internal Medicine Prog Note ---
Internal Medicine Subjective - Subjective Service Date: 10/24/18 Patient seen and examined:: with staff Patient is:: awake, confused, other (pt admitted with altered level of consciousness ,with abnormal ct of chest lung mass) Patient Complaints of:: other (weakness.) Per staff patient has:: no adverse event, no episodes of fall Internal Medicine Objective - Results Result Diagrams: 10/23/18 06:10 10/23/18 06:10 Recent Labs: Laboratory Last Values WBC 5.4 Th/cmm (4.8-10.8) 10/23/18 06:10 RBC 4.14 Mil/cmm (3.80-5.10) 10/23/18 06:10 Hgb 8.7 gm/dL (12-16) L 10/23/18 06:10 Hct 27.8 % (41.0-60) L 10/23/18 06:10 MCV 67.2 fl (81-100) L 10/23/18 06:10 MCH 21.0 pg (27.0-31.0) L 10/23/18 06:10 MCHC Differential 31.2 pg (28.0-36.0) 10/23/18 06:10 RDW 17.5 % (11.5-20.0) 10/23/18 06:10 Plt Count 527 Th/cmm (150-400) H 10/23/18 06:10 MPV 8.7 fl 10/23/18 06:10 Neutrophils % 45.7 % (40.0-80.0) 10/23/18 06:10 Lymphocytes % 44.7 % (20.0-50.0) 10/23/18 06:10 Monocytes % 8.2 % (2.0-10.0) 10/23/18 06:10 Eosinophils % 0.6 % (0.0-5.0) 10/23/18 06:10 Basophils % 0.8 % (0.0-2.0) 10/23/18 06:10 Total Retics Counted 0.5 % (0.5-1.5) 10/22/18 06:25 Absolute Retic 19.8 Th/cmm 10/22/18 06:25 Corrected Retic Count 0.3 % (0.5-1.5) L 10/22/18 06:25 PT 10.8 SECONDS (9.5-11.5) 10/22/18 06:25 INR 1.04 (0.5-1.4) 10/22/18 06:25 PTT (Actin FS) 27.4 SECONDS (26.0-38.0) 10/22/18 06:25 Sodium 142 mEq/L (136-145) 10/23/18 06:10 Potassium 4.1 mEq/L (3.5-5.1) 10/23/18 06:10 Chloride 111 mEq/L (98-107) H 10/23/18 06:10 Carbon Dioxide 24.0 mEq/L (21.0-31.0) 10/23/18 06:10 Anion Gap 11.1 (7.0-16.0) 10/23/18 06:10 BUN 19 mg/dL (7-25) 10/23/18 06:10 Creatinine 0.7 mg/dL (0.6-1.2) 10/23/18 06:10 Est GFR ( Amer) > 60.0 ml/min (>90) 10/23/18 06:10 Est GFR (Non-Af Amer) > 60.0 ml/min 10/23/18 06:10 BUN/Creatinine Ratio 27.1 10/23/18 06:10 Glucose 99 mg/dL (70-105) 10/23/18 06:10 Whole Bld Lactic Acid 1.40 mmol/L (0.60-1.99) 10/21/18 14:45 Calcium 11.2 mg/dL (8.6-10.3) H 10/23/18 06:10 Total Bilirubin 0.4 mg/dL (0.3-1.0) 10/23/18 06:10 AST 17 U/L (13-39) 10/23/18 06:10 ALT 14 U/L (7-52) 10/23/18 06:10 Alkaline Phosphatase 142 U/L (34-104) H 10/23/18 06:10 Creatine Kinase 11 U/L (30-223) L 10/21/18 14:45 Troponin I < 0.01 ng/mL (0.01-0.05) L 10/21/18 14:45 Total Protein 8.0 gm/dL (6.0-8.3) 10/23/18 06:10 Albumin 3.0 gm/dL (3.7-5.3) L 10/23/18 06:10 Globulin 5.0 gm/dL 10/23/18 06:10 Albumin/Globulin Ratio 0.6 (1.0-1.8) L 10/23/18 06:10 Triglycerides 77 mg/dL (<150) 10/22/18 06:25 Cholesterol 90 mg/dL (<200) 10/22/18 06:25 LDL Cholesterol Direct 53 mg/dL (75-193) L 10/22/18 06:25 HDL Cholesterol 27 mg/dL (23-92) 10/22/18 06:25 Free T4 2.74 ng/dL (0.82-1.77) H 10/23/18 06:10 Free T3 6.3 pg/mL (2.0-4.4) H 10/23/18 06:10 TSH 0.02 uIU/ml (0.34-5.60) L 10/22/18 06:25 Urine Source CATH 10/21/18 15:20 Urine Color YELLOW 10/21/18 15:20 Urine Clarity CLEAR (CLEAR) 10/21/18 15:20 Urine pH 6.0 (4.6 - 8.0) 10/21/18 15:20 Ur Specific [place] 1.020 (1.005-1.030) 10/21/18 15:20 Urine Protein NEGATIVE mg/dL (NEGATIVE) 10/21/18 15:20 Urine Glucose (UA) NEGATIVE mg/dL (NEGATIVE) 10/21/18 15:20 Urine Ketones NEGATIVE mg/dL (NEGATIVE) 10/21/18 15:20 Urine Blood TRACE (NEGATIVE) 10/21/18 15:20 Urine Nitrate NEGATIVE (NEGATIVE) 10/21/18 15:20 Urine Bilirubin NEGATIVE (NEGATIVE) 10/21/18 15:20 Urine Urobilinogen 1.0 E.U./dL (0.2 - 1.0) 10/21/18 15:20 Ur Leukocyte Esterase TRACE (NEGATIVE) H 10/21/18 15:20 Urine RBC 2-5 /hpf (0-5) 10/21/18 15:20 Urine WBC 2-5 /hpf (0-5) 10/21/18 15:20 Ur Epithelial Cells MODERATE /lpf (FEW) 10/21/18 15:20 Urine Bacteria 1+ /hpf (NONE SEEN) H 10/21/18 15:20 - Physical Exam Vitals and I&O: Vital Signs Temp 97.5 F 10/24/18 01:00 Pulse 78 10/24/18 09:32 Resp 18 10/24/18 01:00 BP 135/58 10/24/18 09:32 Pulse Ox 100 10/24/18 01:00 Intake & Output 10/23/18 10/24/18 10/24/18 18:59 06:59 18:59 Intake Total 400 200 Balance 400 200 Weight (lbs) 45.813 kg 45.813 kg Intake: Oral 400 200 Other: # Voids 4 2 # Bowel Movements 2 Weight Source Bedscale Bedscale Active Medications: Current Medications Acetaminophen (Tylenol) 650 mg PO Q6H PRN PRN Reason: MILD PAIN OR TEMP > 100.5 Stop: 12/21/18 00:39 Last Admin: 10/24/18 00:56 Dose: 650 mg Bisacodyl (Dulcolax 10 Mg Supp) 10 mg RC DAILY PRN PRN Reason: IF MOM INEFFECTIVE Stop: 12/20/18 23:46 Donepezil HCl (Aricept) 10 mg PO HS [facility] Stop: 12/21/18 20:59 Last Admin: 10/23/18 21:17 Dose: 10 mg Heparin Sodium (Porcine) (Heparin) 5,000 units SUBQ Q12HR [facility] Stop: 12/21/18 08:59 Last Admin: 10/24/18 09:31 Dose: 5,000 units Dextrose/Sodium Chloride (D5-0.45ns) 1,000 mls @ 50 mls/hr IV .Q20H [facility] Stop: 12/20/18 21:38 Last Admin: 10/24/18 09:33 Dose: Not Given Lorazepam (Ativan) 1 mg IVP Q4H PRN; Protocol PRN Reason: Agitation Stop: 12/21/18 08:08 Last Admin: 10/23/18 15:10 Dose: 1 mg Magnesium Hydroxide (Milk Of Magnesia) 30 ml PO HS PRN PRN Reason: Constipation Stop: 12/20/18 23:47 Metoprolol Tartrate (Lopressor) 25 mg PO Q12HR [facility] Stop: 12/20/18 23:44 Last Admin: 10/24/18 09:32 Dose: 25 mg Miscellaneous (Vte Chemical Prophylaxis Screen/ Admission) 1 ea MC PRN PRN PRN Reason: PROTOCOL Stop: 12/21/18 09:00 Mupirocin (Bactroban Oint) 1 appl NS BID [facility] Stop: 10/27/18 17:01 Last Admin: 10/24/18 09:30 Dose: 1 appl Sodium Phosphate (Fleet Enema) 135 ml RC Q48H PRN PRN Reason: IF DULCOLAX INEFFECTIVE Stop: 12/20/18 23:47 Physical Exam: 63 female patient is dis-oriented and still very weak. General: weak, other (awake confused in no distress) HEENT: NC/AT Neck: Supple Lungs: CTAB Cardiovascular: RRR, Normal S1, Normal S2 Abdomen: soft, non-tender Extremities: clear Neurological: no change Internal Medicine Assmt/Plan - Assessment Assessment: dehydration lung mass r/o lung ca copd anemia dementia - Plan Plan: as per surgeon biopsy sitter for safety psych support as per order sheet Nutritional Asmnt/Malnutr-PDOC - Dietary Evaluation Malnutrition Findings (Please click <Entered> for more info): Nutritional Asmnt/Malnutrition Start: 10/22/18 11: 28 Text: Status: Complete Freq: Protocol: Document 10/22/18 11:28 BIANCA (Rec: 10/22/18 11:44 MMFREDERICK CURRY- FNS1) Nutritional Asmnt/Malnutrition Patient General Information Nutritional Screening High Risk Diagnosis Anemia Pertinent Medical Hx/Surgical Hx HTN, osteoarthritis, dementia Subjective Information Patient with 1:1 sitter. 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 Current Diet Order/ Nutrition Support 2gm Sodium Chopped Patient / S.O Not Indicated Pertinent Medications dulcolax, D5-0.45NS @50 ml/hr, MOM, Fleet enema Pertinent Labs (10/22) Ca 10.6 (10/21) Albumin 3.1 Nutritional Hx/Data Height 1.65 m Height (Calculated Centimeters) 165.1 Current Weight (lbs) 42.638 kg Weight (Calculated Kilograms) 42.6 Weight (Calculated Grams) 74888.7 [place] Body Weight 125 % [place] Body Weight 75 Body Mass Index (BMI) 15.6 Recent Weight Change No Weight Status Underweight GI Symptoms GI Symptoms None Last BM none noted in EMR since admission Difficult in: None Food Allergies No Cultural/Ethnic/Adventist Belief None indicated Usual diet at home unknown Skin Integrity/Comment: [place]eredith 16 Current %PO Good (75-100%) Estimated Nutritional Goals BEE in Kcals: Adj wt of IBW Calories/Kcals/Kg 56.8 IBW 25-30 kcal/kg Kcals Calculated ~0784-5568 kcal/day Protein: Adj wt of IBW Protein g/k.8 gm/kg using IBW Protein Calculated ~45-55 gm/day Fluid: ml ~7813-9163 ml/day (1 ml/kcal) Nutritional Problem 1. Problem Problem Underweight related to Etiology possible inadequate intake aeb Signs/Symptoms: BMI 15.6 Intervention/Recommendation Comments 1. Continue 2gm sodium, chopped diet as tolerated by patient due to HTN. 2. Encourage oral intake and provide assistance with meals as needed. 3. Will hold off on supplements at this time even with low BMI due to patient's adequate oral intake and good appetite. Expected Outcomes/Goals Expected Outcomes/Goals Oral intake >75% of meals, weight gain toward IBW, nutrition related labs WNL F/U MR 10/25-
--- NOTE | 2018-10-24 11:00 | GI Progress Note ---
Subjective - Review of Systems Service Date: 10/24/18 Events since last encounter: No events Subjective: No active complaints Objective - Results Result Diagrams: 10/23/18 06:10 10/23/18 06:10 Recent Labs: Laboratory Last Values WBC 5.4 Th/cmm (4.8-10.8) 10/23/18 06:10 RBC 4.14 Mil/cmm (3.80-5.10) 10/23/18 06:10 Hgb 8.7 gm/dL (12-16) L 10/23/18 06:10 Hct 27.8 % (41.0-60) L 10/23/18 06:10 MCV 67.2 fl (81-100) L 10/23/18 06:10 MCH 21.0 pg (27.0-31.0) L 10/23/18 06:10 MCHC Differential 31.2 pg (28.0-36.0) 10/23/18 06:10 RDW 17.5 % (11.5-20.0) 10/23/18 06:10 Plt Count 527 Th/cmm (150-400) H 10/23/18 06:10 MPV 8.7 fl 10/23/18 06:10 Neutrophils % 45.7 % (40.0-80.0) 10/23/18 06:10 Lymphocytes % 44.7 % (20.0-50.0) 10/23/18 06:10 Monocytes % 8.2 % (2.0-10.0) 10/23/18 06:10 Eosinophils % 0.6 % (0.0-5.0) 10/23/18 06:10 Basophils % 0.8 % (0.0-2.0) 10/23/18 06:10 Total Retics Counted 0.5 % (0.5-1.5) 10/22/18 06:25 Absolute Retic 19.8 Th/cmm 10/22/18 06:25 Corrected Retic Count 0.3 % (0.5-1.5) L 10/22/18 06:25 PT 10.8 SECONDS (9.5-11.5) 10/22/18 06:25 INR 1.04 (0.5-1.4) 10/22/18 06:25 PTT (Actin FS) 27.4 SECONDS (26.0-38.0) 10/22/18 06:25 Sodium 142 mEq/L (136-145) 10/23/18 06:10 Potassium 4.1 mEq/L (3.5-5.1) 10/23/18 06:10 Chloride 111 mEq/L (98-107) H 10/23/18 06:10 Carbon Dioxide 24.0 mEq/L (21.0-31.0) 10/23/18 06:10 Anion Gap 11.1 (7.0-16.0) 10/23/18 06:10 BUN 19 mg/dL (7-25) 10/23/18 06:10 Creatinine 0.7 mg/dL (0.6-1.2) 10/23/18 06:10 Est GFR ( Amer) > 60.0 ml/min (>90) 10/23/18 06:10 Est GFR (Non-Af Amer) > 60.0 ml/min 10/23/18 06:10 BUN/Creatinine Ratio 27.1 10/23/18 06:10 Glucose 99 mg/dL (70-105) 10/23/18 06:10 Whole Bld Lactic Acid 1.40 mmol/L (0.60-1.99) 10/21/18 14:45 Calcium 11.2 mg/dL (8.6-10.3) H 10/23/18 06:10 Total Bilirubin 0.4 mg/dL (0.3-1.0) 10/23/18 06:10 AST 17 U/L (13-39) 10/23/18 06:10 ALT 14 U/L (7-52) 10/23/18 06:10 Alkaline Phosphatase 142 U/L (34-104) H 10/23/18 06:10 Creatine Kinase 11 U/L (30-223) L 10/21/18 14:45 Troponin I < 0.01 ng/mL (0.01-0.05) L 10/21/18 14:45 Total Protein 8.0 gm/dL (6.0-8.3) 10/23/18 06:10 Albumin 3.0 gm/dL (3.7-5.3) L 10/23/18 06:10 Globulin 5.0 gm/dL 10/23/18 06:10 Albumin/Globulin Ratio 0.6 (1.0-1.8) L 10/23/18 06:10 Triglycerides 77 mg/dL (<150) 10/22/18 06:25 Cholesterol 90 mg/dL (<200) 10/22/18 06:25 LDL Cholesterol Direct 53 mg/dL (75-193) L 10/22/18 06:25 HDL Cholesterol 27 mg/dL (23-92) 10/22/18 06:25 Free T4 2.74 ng/dL (0.82-1.77) H 10/23/18 06:10 Free T3 6.3 pg/mL (2.0-4.4) H 10/23/18 06:10 TSH 0.02 uIU/ml (0.34-5.60) L 10/22/18 06:25 Urine Source CATH 10/21/18 15:20 Urine Color YELLOW 10/21/18 15:20 Urine Clarity CLEAR (CLEAR) 10/21/18 15:20 Urine pH 6.0 (4.6 - 8.0) 10/21/18 15:20 Ur Specific [place] 1.020 (1.005-1.030) 10/21/18 15:20 Urine Protein NEGATIVE mg/dL (NEGATIVE) 10/21/18 15:20 Urine Glucose (UA) NEGATIVE mg/dL (NEGATIVE) 10/21/18 15:20 Urine Ketones NEGATIVE mg/dL (NEGATIVE) 10/21/18 15:20 Urine Blood TRACE (NEGATIVE) 10/21/18 15:20 Urine Nitrate NEGATIVE (NEGATIVE) 10/21/18 15:20 Urine Bilirubin NEGATIVE (NEGATIVE) 10/21/18 15:20 Urine Urobilinogen 1.0 E.U./dL (0.2 - 1.0) 10/21/18 15:20 Ur Leukocyte Esterase TRACE (NEGATIVE) H 10/21/18 15:20 Urine RBC 2-5 /hpf (0-5) 10/21/18 15:20 Urine WBC 2-5 /hpf (0-5) 10/21/18 15:20 Ur Epithelial Cells MODERATE /lpf (FEW) 10/21/18 15:20 Urine Bacteria 1+ /hpf (NONE SEEN) H 10/21/18 15:20 - Physical Exam Vitals and I&O: Vital Signs Temp 97.5 F 10/24/18 01:00 Pulse 78 10/24/18 09:32 Resp 18 10/24/18 01:00 BP 135/58 10/24/18 09:32 Pulse Ox 100 10/24/18 01:00 Intake & Output 10/23/18 10/24/18 10/24/18 18:59 06:59 18:59 Intake Total 1400 200 Balance 1400 200 Weight (lbs) 45.813 kg 45.813 kg Intake: Intake, IV Amount 1000 D5-0.45NS 1,000 ml @ 50 1000 mls/hr IV .Q20H ELLYN Rx#: [id number] Oral 400 200 Other: # Voids 4 2 # Bowel Movements 2 Weight Source Bedscale Bedscale Active Medications: Current Medications Acetaminophen (Tylenol) 650 mg PO Q6H PRN PRN Reason: MILD PAIN OR TEMP > 100.5 Stop: 12/21/18 00:39 Last Admin: 10/24/18 00:56 Dose: 650 mg Bisacodyl (Dulcolax 10 Mg Supp) 10 mg RC DAILY PRN PRN Reason: IF MOM INEFFECTIVE Stop: 12/20/18 23:46 Donepezil HCl (Aricept) 10 mg PO HS ELLYN Stop: 12/21/18 20:59 Last Admin: 10/23/18 21:17 Dose: 10 mg Heparin Sodium (Porcine) (Heparin) 5,000 units SUBQ Q12HR ELLYN Stop: 12/21/18 08:59 Last Admin: 10/24/18 09:31 Dose: 5,000 units Dextrose/Sodium Chloride (D5-0.45ns) 1,000 mls @ 50 mls/hr IV .Q20H ELLYN Stop: 12/20/18 21:38 Last Admin: 10/24/18 10:39 Dose: 50 mls/hr Lorazepam (Ativan) 1 mg IVP Q4H PRN; Protocol PRN Reason: Agitation Stop: 12/21/18 08:08 Last Admin: 10/23/18 15:10 Dose: 1 mg Magnesium Hydroxide (Milk Of Magnesia) 30 ml PO HS PRN PRN Reason: Constipation Stop: 12/20/18 23:47 Metoprolol Tartrate (Lopressor) 25 mg PO Q12HR ELLYN Stop: 12/20/18 23:44 Last Admin: 10/24/18 09:32 Dose: 25 mg Miscellaneous (Vte Chemical Prophylaxis Screen/ Admission) 1 ea MC PRN PRN PRN Reason: PROTOCOL Stop: 12/21/18 09:00 Mupirocin (Bactroban Oint) 1 appl NS BID ELLYN Stop: 10/27/18 17:01 Last Admin: 10/24/18 09:30 Dose: 1 appl Sodium Phosphate (Fleet Enema) 135 ml RC Q48H PRN PRN Reason: IF DULCOLAX INEFFECTIVE Stop: 12/20/18 23:47 General: Alert, No acute distress Neck: Supple Cardiovascular: Regular rate, Normal S1 Lungs: Clear to auscultation Abdomen: Bowel sounds, Soft, no Tender, no Mass Assessment/Plan - Problem List Patient Problems: All Active Problems ABNORMAL LABORATORY FINDINGS (HB, HCT) (Acute) - Assessment Assessment: 1. Severe anemia - Plan Plan: 1. Severe anemia Will need GI w/u after the lung biopsy and if she is willing to take the prep and consent is available
--- NOTE | 2018-10-25 01:35 | Consultation ---
DATE OF CONSULTATION: 10/24/2018 COVERING FOR: Dr. Koch. IDENTIFYING INFORMATION: The patient is a 63-year-old female. HISTORY OF PRESENT ILLNESS: I was asked to see this patient who is with altered level of consciousness. The patient herself is a poor historian. The patient believes she is 52 years of age. She believes she is in some house and does not know why she is here. She reports that she has some irritability and a mass in her back, but she does not know she is in the hospital. She reports she sleeps well and eats well. She has hard time understanding the questions. The patient came from a correction facility with a history of dementia. The patient is a poor historian. PAST PSYCHIATRIC HISTORY: The patient denies. The patient is with a history of dementia. MEDICAL HISTORY: Dehydration, COPD, anemia, chronic upper lung mass, hypertension, osteoarthritis. ALLERGIES: The patient has no known drug allergies. MEDICATIONS: The patient has been on Aricept 10 mg at bedtime. No other psychotropic medication. MENTAL STATUS EXAMINATION: The patient is appropriately dressed, not well groomed. She was also hard of hearing, unable to tell me the date. She was able to tell me her date of but she cannot tell me her age. Recent memory is poor, cannot tell me why she is here or where she is, unable to tell the date. She reports that she sleeps well and eats well. She denies any current intent to harm herself or anyone. Denies any auditory or visual hallucinations. keno terminal operator is poor, cannot remember her age. Her insight about the illness is poor. She does not realize she has a problem. Judgment is poor. Unable to make a safe plan for her self-care. IMPRESSION: Dementia. PLAN: I would recommend to continue with Aricept and her altered level of consciousness may be because of her medical condition as the patient has been dehydrated. I will follow up with you and adjust the medication as needed. Thank you very much for allowing me to participate in the care of this most interesting lady. JOB# [id number]
--- NOTE | 2018-10-25 03:16 | Consultation ---
DATE OF CONSULTATION: 10/24/2018 INFECTIOUS DISEASE CONSULTATION REFERRING PHYSICIAN: Kaylynn Hodges M.D. REASON FOR CONSULTATION: UTI. HISTORY OF PRESENT ILLNESS: The patient is a 63-year-old female with past medical history of hypertension and osteoarthritis, brought to the ER for altered mental status for 3 days. On initial evaluation, the patient's temperature was 99.5 degrees Fahrenheit and WBC count was 7000. Chest x-ray showed right upper lobe mass. CT scan of the chest confirmed the presence of right upper lobe mass. Urinalysis showed pyuria and bacteriuria. The patient had urine culture, which showed no growth. PAST MEDICAL HISTORY: Includes hypertension, dementia, and psychosis. PAST SURGICAL HISTORY: Includes probably CABG. SOCIAL HISTORY: The patient has no history of alcohol or IV drug abuse, although the patient has a history of smoking 2 packs a day in the past. REVIEW OF SYSTEMS: GENERAL: The patient denies any fever or chills. HEENT: No diplopia, no photophobia, no sore throat. RESPIRATORY: No cough, no shortness of breath. CARDIOVASCULAR: No chest pain, no palpitation. GASTROINTESTINAL: No nausea, no vomiting, no diarrhea, no constipation. GENITOURINARY: No dysuria. NEUROLOGIC: No headache, no dizziness, no focal weakness. PHYSICAL EXAMINATION: GENERAL: The patient is cachectic, not in acute distress. VITAL SIGNS: Show temperature 97.5, pulse is 75, respirations 18, blood pressure 135/58. HEENT: Head is normocephalic, atraumatic. Oral cavity moist. [place] tongue. NECK: Supple. No JVD, no carotid bruits. Trachea in midline. CHEST: Bilateral breath sounds. No crackles, no wheezing. HEART: S1 and S2 within normal limits. Regular rate and rhythm. No murmur, no gallop. ABDOMEN: Soft, nontender, nondistended. Bowel sounds present. EXTREMITIES: No cyanosis, no clubbing. NEUROLOGICAL: Alert, awake, oriented x 3. LABORATORY DATA: Current labs show WBC of 5400, hemoglobin 8.7, hematocrit 27.8, platelets are 527,000, neutrophil is 45.7%. Sodium 142, potassium 4.1, chloride 111, bicarbonate is 24, BUN is 19, creatinine 0.7, glucose is 99. Urinalysis showed trace leukocyte esterase, wbc's 2-5, and bacteria 1+. Urine culture is negative. MRSA screen is positive for MRSA. DIAGNOSTIC DATA: CT scan of the chest shows right upper lobe mass, suspect neoplastic process. IMPRESSION: 1. Urinary tract infection. 2. MRSA colonization. 3. Right upper lung mass, most likely malignancy. 4. Hypertension. 5. Anemia. Stool for occult blood negative. 6. Dementia. RECOMMENDATIONS: We will start Levaquin 250 mg p.o. daily for five days. Thank you, Dr. Hodges, for involving me in taking care of this patient. JOB# [id number]
[2018-10-25 05:10] LABS: FERRITIN 269 ng/mL (15-150); FOLIC ACID 17.9 ng/mL (>3.0); HAPTOGLOBIN 389 mg/dL (34-200); IRON LC 10 ug/dL (27-139); TIBC (LC) 179 ug/dL (250-450); UIBC 169 ug/dL (118-369)
[2018-10-25] MEDS: D5-0.45NS 1,000 ML IV SCH (07:02)
--- NOTE | 2018-10-25 09:32 | Progress Notes ---
DATE: 10/24/2018 PULMONARY PROGRESS NOTE SUBJECTIVE: The patient confused, loud, but in no distress. OBJECTIVE: VITAL SIGNS: Temperature 97.2, pulse 66, respirations 18, blood pressure 120/78, saturation 100%. CHEST: Good breath sounds. No wheezing or crackles. HEART: Regular rate and rhythm. ABDOMEN: Soft, nontender. EXTREMITIES: No edema. IMPRESSION: 1. Possible chronic obstructive pulmonary disease. 2. Lung mass. PLAN: Awaiting social service and ____ to meet. The patient has no way to make a decision and obviously she is unable to make decision ____ about biopsy and further care. JOB# [id number]
[2018-10-25] MEDS: Multivitamin w/ Minerals Tab PO SCH (10:25)
[2018-10-25] MEDS: Heparin Sod 5,000Units/ML 5,000 UNITS/ML VIAL SUBQ SCH ×2 (10:27→20:11)
[2018-10-25] MEDS ORDERED: Magnesium Citrate 1.75 GM/300 mL Bottle PO ONE (10:34)
--- NOTE | 2018-10-25 13:17 | Progress Notes ---
DATE: 10/25/2018 Case was discussed with staff of the patient, reviewed records. The patient continues to be demented and confused. The patient continues to be a poor historian. Continues to have episodes of irritability, unable to participate in meaningful conversation or make safe plan for self-care. The patient was dehydrated and hopefully her mental status will improve as her dehydration improve. Thank you very much for allowing me to participate in the care of this most interesting lady. [facility]# [id number]
--- NOTE | 2018-10-25 23:13 | Internal Medicine Prog Note ---
Internal Medicine Subjective - Subjective Patient is:: awake, confused, other (pt admitted with altered level of consciousness ,with abnormal ct of chest lung mass) Patient Complaints of:: other (weakness.) Per staff patient has:: no adverse event, no episodes of fall Internal Medicine Objective - Results Result Diagrams: 10/26/18 10:25 10/23/18 06:10 Recent Labs: Laboratory Last Values WBC 5.4 Th/cmm (4.8-10.8) 10/23/18 06:10 RBC 4.14 Mil/cmm (3.80-5.10) 10/23/18 06:10 Hgb 8.7 gm/dL (12-16) L 10/23/18 06:10 Hct 27.8 % (41.0-60) L 10/23/18 06:10 MCV 67.2 fl (81-100) L 10/23/18 06:10 MCH 21.0 pg (27.0-31.0) L 10/23/18 06:10 MCHC Differential 31.2 pg (28.0-36.0) 10/23/18 06:10 RDW 17.5 % (11.5-20.0) 10/23/18 06:10 Plt Count 527 Th/cmm (150-400) H 10/23/18 06:10 MPV 8.7 fl 10/23/18 06:10 Neutrophils % 45.7 % (40.0-80.0) 10/23/18 06:10 Lymphocytes % 44.7 % (20.0-50.0) 10/23/18 06:10 Monocytes % 8.2 % (2.0-10.0) 10/23/18 06:10 Eosinophils % 0.6 % (0.0-5.0) 10/23/18 06:10 Basophils % 0.8 % (0.0-2.0) 10/23/18 06:10 Total Retics Counted 0.5 % (0.5-1.5) 10/22/18 06:25 Absolute Retic 19.8 Th/cmm 10/22/18 06:25 Corrected Retic Count 0.3 % (0.5-1.5) L 10/22/18 06:25 Haptoglobin 389 mg/dL (34-200) H 10/22/18 06:25 PT 10.8 SECONDS (9.5-11.5) 10/22/18 06:25 INR 1.04 (0.5-1.4) 10/22/18 06:25 PTT (Actin FS) 27.4 SECONDS (26.0-38.0) 10/22/18 06:25 Sodium 142 mEq/L (136-145) 10/23/18 06:10 Potassium 4.1 mEq/L (3.5-5.1) 10/23/18 06:10 Chloride 111 mEq/L (98-107) H 10/23/18 06:10 Carbon Dioxide 24.0 mEq/L (21.0-31.0) 10/23/18 06:10 Anion Gap 11.1 (7.0-16.0) 10/23/18 06:10 BUN 19 mg/dL (7-25) 10/23/18 06:10 Creatinine 0.7 mg/dL (0.6-1.2) 10/23/18 06:10 Est GFR ( Amer) > 60.0 ml/min (>90) 10/23/18 06:10 Est GFR (Non-Af Amer) > 60.0 ml/min 10/23/18 06:10 BUN/Creatinine Ratio 27.1 10/23/18 06:10 Glucose 99 mg/dL (70-105) 10/23/18 06:10 Whole Bld Lactic Acid 1.40 mmol/L (0.60-1.99) 10/21/18 14:45 Calcium 11.2 mg/dL (8.6-10.3) H 10/23/18 06:10 Iron 10 ug/dL (27-139) L 10/22/18 06:25 TIBC 179 ug/dL (250-450) L 10/22/18 06:25 Iron Saturation 6 % (15-55) L 10/22/18 06:25 Unsaturated IBC 169 ug/dL (118-369) 10/22/18 06:25 Ferritin 269 ng/mL (15-150) H 10/22/18 06:25 Total Bilirubin 0.4 mg/dL (0.3-1.0) 10/23/18 06:10 AST 17 U/L (13-39) 10/23/18 06:10 ALT 14 U/L (7-52) 10/23/18 06:10 Alkaline Phosphatase 142 U/L (34-104) H 10/23/18 06:10 Creatine Kinase 11 U/L (30-223) L 10/21/18 14:45 Troponin I < 0.01 ng/mL (0.01-0.05) L 10/21/18 14:45 Total Protein 8.0 gm/dL (6.0-8.3) 10/23/18 06:10 Albumin 3.0 gm/dL (3.7-5.3) L 10/23/18 06:10 Globulin 5.0 gm/dL 10/23/18 06:10 Albumin/Globulin Ratio 0.6 (1.0-1.8) L 10/23/18 06:10 Triglycerides 77 mg/dL (<150) 10/22/18 06:25 Cholesterol 90 mg/dL (<200) 10/22/18 06:25 LDL Cholesterol Direct 53 mg/dL (75-193) L 10/22/18 06:25 HDL Cholesterol 27 mg/dL (23-92) 10/22/18 06:25 Vitamin B12 434 pg/mL (232-1245) 10/22/18 06:25 Folic Acid 17.9 ng/mL (>3.0) 10/22/18 06:25 Free T4 2.74 ng/dL (0.82-1.77) H 10/23/18 06:10 Free T3 6.3 pg/mL (2.0-4.4) H 10/23/18 06:10 TSH 0.02 uIU/ml (0.34-5.60) L 10/22/18 06:25 Urine Source CATH 10/21/18 15:20 Urine Color YELLOW 10/21/18 15:20 Urine Clarity CLEAR (CLEAR) 10/21/18 15:20 Urine pH 6.0 (4.6 - 8.0) 10/21/18 15:20 Ur Specific [place] 1.020 (1.005-1.030) 10/21/18 15:20 Urine Protein NEGATIVE mg/dL (NEGATIVE) 10/21/18 15:20 Urine Glucose (UA) NEGATIVE mg/dL (NEGATIVE) 10/21/18 15:20 Urine Ketones NEGATIVE mg/dL (NEGATIVE) 10/21/18 15:20 Urine Blood TRACE (NEGATIVE) 10/21/18 15:20 Urine Nitrate NEGATIVE (NEGATIVE) 10/21/18 15:20 Urine Bilirubin NEGATIVE (NEGATIVE) 10/21/18 15:20 Urine Urobilinogen 1.0 E.U./dL (0.2 - 1.0) 10/21/18 15:20 Ur Leukocyte Esterase TRACE (NEGATIVE) H 10/21/18 15:20 Urine RBC 2-5 /hpf (0-5) 10/21/18 15:20 Urine WBC 2-5 /hpf (0-5) 10/21/18 15:20 Ur Epithelial Cells MODERATE /lpf (FEW) 10/21/18 15:20 Urine Bacteria 1+ /hpf (NONE SEEN) H 10/21/18 15:20 Stool Occult Blood NEGATIVE (NEGATIVE) 10/24/18 10:45 - Physical Exam Vitals and I&O: Vital Signs Temp 99 F 10/25/18 21:00 Pulse 93 10/25/18 22:29 Resp 18 10/25/18 21:00 BP 100/48 10/25/18 22:29 Pulse Ox 96 10/25/18 21:00 Intake & Output 10/25/18 10/25/18 10/26/18 06:59 18:59 06:59 Intake Total 100 Balance 100 Weight (lbs) 45.359 kg Intake: Oral 100 Other: # Voids 1 # Bowel Movements 1 Weight Source Bedscale Active Medications: Current Medications Acetaminophen (Tylenol) 650 mg PO Q6H PRN PRN Reason: MILD PAIN OR TEMP > 100.5 Stop: 12/21/18 00:39 Last Admin: 10/24/18 00:56 Dose: 650 mg Bisacodyl (Dulcolax 10 Mg Supp) 10 mg RC DAILY PRN PRN Reason: IF MOM INEFFECTIVE Stop: 12/20/18 23:46 Donepezil HCl (Aricept) 10 mg PO HS ELLYN Stop: 12/21/18 20:59 Last Admin: 10/25/18 20:11 Dose: 10 mg Heparin Sodium (Porcine) (Heparin) 5,000 units SUBQ Q12HR ELLYN Stop: 12/21/18 08:59 Last Admin: 10/25/18 20:11 Dose: 5,000 units Dextrose/Sodium Chloride (D5-0.45ns) 1,000 mls @ 50 mls/hr IV .Q20H [facility] Stop: 12/20/18 21:38 Last Admin: 10/25/18 07:02 Dose: Not Given Levofloxacin (Levaquin) 250 mg PO DAILY [facility] Stop: 12/24/18 08:59 Last Admin: 10/25/18 10:24 Dose: 250 mg Lorazepam (Ativan) 1 mg IVP Q4H PRN; Protocol PRN Reason: Agitation Stop: 12/21/18 08:08 Last Admin: 10/25/18 20:11 Dose: 1 mg Magnesium Hydroxide (Milk Of Magnesia) 30 ml PO HS PRN PRN Reason: Constipation Stop: 12/20/18 23:47 Metoprolol Tartrate (Lopressor) 25 mg PO Q12HR [facility] Stop: 12/20/18 23:44 Last Admin: 10/25/18 22:29 Dose: Not Given Miscellaneous (Vte Chemical Prophylaxis Screen/ Admission) 1 ea MC PRN PRN PRN Reason: PROTOCOL Stop: 12/21/18 09:00 Mupirocin (Bactroban Oint) 1 appl NS BID [facility] Stop: 10/27/18 17:01 Last Admin: 10/25/18 18:43 Dose: 1 appl Sodium Phosphate (Fleet Enema) 135 ml RC Q48H PRN PRN Reason: IF DULCOLAX INEFFECTIVE Stop: 12/20/18 23:47 Physical Exam: 63 female patient has generalized weakness and fatigue. General: weak, other (awake, remains confused, in no distress) HEENT: NC/AT Neck: Supple Lungs: CTAB Cardiovascular: RRR, Normal S1, Normal S2 Abdomen: soft, non-tender Extremities: clear Neurological: no change, muscle weakness Internal Medicine Assmt/Plan - Assessment Assessment: dehydration lung mass r/o lung ca copd severe anemia dementia - Plan Plan: psych support as per order sheet Nutritional Asmnt/Malnutr-PDOC - Dietary Evaluation Malnutrition Findings (Please click <Entered> for more info): Nutritional Asmnt/Malnutrition Start: 10/22/18 11: 28 Text: Status: Complete Freq: Protocol: Document 10/22/18 11:28 MMULHERN (Rec: 10/22/18 11:44 MMULHERDmitri CURRY- [email or web address]) Nutritional Asmnt/Malnutrition Patient General Information Nutritional Screening High Risk Diagnosis Anemia Pertinent Medical Hx/Surgical Hx HTN, osteoarthritis, dementia Subjective Information Patient with 1:1 sitter. Per DIRECTOR OF ASSISTED LIVING, patient has a good appetite and eating 100% of meals. Current Diet Order/ Nutrition Support 2gm Sodium Chopped Patient / S.O Not Indicated Pertinent Medications dulcolax, D5-0.45NS @50 ml/hr, MOM, Fleet enema Pertinent Labs (10/22) Ca 10.6 (10/21) Albumin 3.1 Nutritional Hx/Data Height 1.65 m Height (Calculated Centimeters) 165.1 Current Weight (lbs) 42.638 kg Weight (Calculated Kilograms) 42.6 Weight (Calculated Grams) 48322.7 [place] Body Weight 125 % [place] Body Weight 75 Body Mass Index (BMI) 15.6 Recent Weight Change No Weight Status Underweight GI Symptoms GI Symptoms None Last BM none noted in EMR since admission Difficult in: None Food Allergies No Cultural/Ethnic/Church Belief None indicated Usual diet at home unknown Skin Integrity/Comment: Meredith Reaves Current %PO Good (75-100%) Estimated Nutritional Goals BEE in Kcals: Adj wt of IBW Calories/Kcals/Kg 56.8 IBW 25-30 kcal/kg Kcals Calculated ~1197-8963 kcal/day Protein: Adj wt of IBW Protein g/k.8 gm/kg using IBW Protein Calculated ~45-55 gm/day Fluid: ml ~0941-0331 ml/day (1 ml/kcal) Nutritional Problem 1. Problem Problem Underweight related to Etiology possible inadequate intake aeb Signs/Symptoms: BMI 15.6 Intervention/Recommendation Comments 1. Continue 2gm sodium, chopped diet as tolerated by patient due to HTN. 2. Encourage oral intake and provide assistance with meals as needed. 3. Will hold off on supplements at this time even with low BMI due to patient's adequate oral intake and good appetite. Expected Outcomes/Goals Expected Outcomes/Goals Oral intake >75% of meals, weight gain toward IBW, nutrition related labs WNL F/U MR 10/25-
--- NOTE | 2018-10-26 03:13 | Infectious Disease Prog Note ---
Infectious Disease Subjective - Review of Systems Service Date: 10/25/18 Subjective: Doing well, no fever. Infectious Disease Objective - Results Result Diagrams: 10/23/18 06:10 10/23/18 06:10 Recent Labs: Laboratory Last Values WBC 5.4 Th/cmm (4.8-10.8) 10/23/18 06:10 RBC 4.14 Mil/cmm (3.80-5.10) 10/23/18 06:10 Hgb 8.7 gm/dL (12-16) L 10/23/18 06:10 Hct 27.8 % (41.0-60) L 10/23/18 06:10 MCV 67.2 fl (81-100) L 10/23/18 06:10 MCH 21.0 pg (27.0-31.0) L 10/23/18 06:10 MCHC Differential 31.2 pg (28.0-36.0) 10/23/18 06:10 RDW 17.5 % (11.5-20.0) 10/23/18 06:10 Plt Count 527 Th/cmm (150-400) H 10/23/18 06:10 MPV 8.7 fl 10/23/18 06:10 Neutrophils % 45.7 % (40.0-80.0) 10/23/18 06:10 Lymphocytes % 44.7 % (20.0-50.0) 10/23/18 06:10 Monocytes % 8.2 % (2.0-10.0) 10/23/18 06:10 Eosinophils % 0.6 % (0.0-5.0) 10/23/18 06:10 Basophils % 0.8 % (0.0-2.0) 10/23/18 06:10 Total Retics Counted 0.5 % (0.5-1.5) 10/22/18 06:25 Absolute Retic 19.8 Th/cmm 10/22/18 06:25 Corrected Retic Count 0.3 % (0.5-1.5) L 10/22/18 06:25 Haptoglobin 389 mg/dL (34-200) H 10/22/18 06:25 PT 10.8 SECONDS (9.5-11.5) 10/22/18 06:25 INR 1.04 (0.5-1.4) 10/22/18 06:25 PTT (Actin FS) 27.4 SECONDS (26.0-38.0) 10/22/18 06:25 Sodium 142 mEq/L (136-145) 10/23/18 06:10 Potassium 4.1 mEq/L (3.5-5.1) 10/23/18 06:10 Chloride 111 mEq/L (98-107) H 10/23/18 06:10 Carbon Dioxide 24.0 mEq/L (21.0-31.0) 10/23/18 06:10 Anion Gap 11.1 (7.0-16.0) 10/23/18 06:10 BUN 19 mg/dL (7-25) 10/23/18 06:10 Creatinine 0.7 mg/dL (0.6-1.2) 10/23/18 06:10 Est GFR ( Amer) > 60.0 ml/min (>90) 10/23/18 06:10 Est GFR (Non-Af Amer) > 60.0 ml/min 10/23/18 06:10 BUN/Creatinine Ratio 27.1 10/23/18 06:10 Glucose 99 mg/dL (70-105) 10/23/18 06:10 Whole Bld Lactic Acid 1.40 mmol/L (0.60-1.99) 10/21/18 14:45 Calcium 11.2 mg/dL (8.6-10.3) H 10/23/18 06:10 Iron 10 ug/dL (27-139) L 10/22/18 06:25 TIBC 179 ug/dL (250-450) L 10/22/18 06:25 Iron Saturation 6 % (15-55) L 10/22/18 06:25 Unsaturated IBC 169 ug/dL (118-369) 10/22/18 06:25 Ferritin 269 ng/mL (15-150) H 10/22/18 06:25 Total Bilirubin 0.4 mg/dL (0.3-1.0) 10/23/18 06:10 AST 17 U/L (13-39) 10/23/18 06:10 ALT 14 U/L (7-52) 10/23/18 06:10 Alkaline Phosphatase 142 U/L (34-104) H 10/23/18 06:10 Creatine Kinase 11 U/L (30-223) L 10/21/18 14:45 Troponin I < 0.01 ng/mL (0.01-0.05) L 10/21/18 14:45 Total Protein 8.0 gm/dL (6.0-8.3) 10/23/18 06:10 Albumin 3.0 gm/dL (3.7-5.3) L 10/23/18 06:10 Globulin 5.0 gm/dL 10/23/18 06:10 Albumin/Globulin Ratio 0.6 (1.0-1.8) L 10/23/18 06:10 Triglycerides 77 mg/dL (<150) 10/22/18 06:25 Cholesterol 90 mg/dL (<200) 10/22/18 06:25 LDL Cholesterol Direct 53 mg/dL (75-193) L 10/22/18 06:25 HDL Cholesterol 27 mg/dL (23-92) 10/22/18 06:25 Vitamin B12 434 pg/mL (232-1245) 10/22/18 06:25 Folic Acid 17.9 ng/mL (>3.0) 10/22/18 06:25 Free T4 2.74 ng/dL (0.82-1.77) H 10/23/18 06:10 Free T3 6.3 pg/mL (2.0-4.4) H 10/23/18 06:10 TSH 0.02 uIU/ml (0.34-5.60) L 10/22/18 06:25 Urine Source CATH 10/21/18 15:20 Urine Color YELLOW 10/21/18 15:20 Urine Clarity CLEAR (CLEAR) 10/21/18 15:20 Urine pH 6.0 (4.6 - 8.0) 10/21/18 15:20 Ur Specific [place] 1.020 (1.005-1.030) 10/21/18 15:20 Urine Protein NEGATIVE mg/dL (NEGATIVE) 10/21/18 15:20 Urine Glucose (UA) NEGATIVE mg/dL (NEGATIVE) 10/21/18 15:20 Urine Ketones NEGATIVE mg/dL (NEGATIVE) 10/21/18 15:20 Urine Blood TRACE (NEGATIVE) 10/21/18 15:20 Urine Nitrate NEGATIVE (NEGATIVE) 10/21/18 15:20 Urine Bilirubin NEGATIVE (NEGATIVE) 10/21/18 15:20 Urine Urobilinogen 1.0 E.U./dL (0.2 - 1.0) 10/21/18 15:20 Ur Leukocyte Esterase TRACE (NEGATIVE) H 10/21/18 15:20 Urine RBC 2-5 /hpf (0-5) 10/21/18 15:20 Urine WBC 2-5 /hpf (0-5) 10/21/18 15:20 Ur Epithelial Cells MODERATE /lpf (FEW) 10/21/18 15:20 Urine Bacteria 1+ /hpf (NONE SEEN) H 10/21/18 15:20 Stool Occult Blood NEGATIVE (NEGATIVE) 10/24/18 10:45 - Physical Exam Vitals and I&O: Vital Signs Temp 97 F 10/26/18 01:00 Pulse 75 10/26/18 01:00 Resp 18 10/26/18 01:00 BP 136/74 10/26/18 01:00 Pulse Ox 95 10/26/18 01:00 Intake & Output 10/25/18 10/25/18 10/26/18 06:59 18:59 06:59 Intake Total 100 Balance 100 Weight (lbs) 45.359 kg Intake: Oral 100 Other: # Voids 1 # Bowel Movements 1 Weight Source Bedscale Active Medications: Current Medications Acetaminophen (Tylenol) 650 mg PO Q6H PRN PRN Reason: MILD PAIN OR TEMP > 100.5 Stop: 12/21/18 00:39 Last Admin: 10/24/18 00:56 Dose: 650 mg Bisacodyl (Dulcolax 10 Mg Supp) 10 mg RC DAILY PRN PRN Reason: IF MOM INEFFECTIVE Stop: 12/20/18 23:46 Donepezil HCl (Aricept) 10 mg PO HS ELLYN Stop: 12/21/18 20:59 Last Admin: 10/25/18 20:11 Dose: 10 mg Heparin Sodium (Porcine) (Heparin) 5,000 units SUBQ Q12HR ELLYN Stop: 12/21/18 08:59 Last Admin: 10/25/18 20:11 Dose: 5,000 units Dextrose/Sodium Chloride (D5-0.45ns) 1,000 mls @ 50 mls/hr IV .Q20H ELLYN Stop: 12/20/18 21:38 Last Admin: 10/25/18 07:02 Dose: Not Given Levofloxacin (Levaquin) 250 mg PO DAILY [facility] Stop: 12/24/18 08:59 Last Admin: 10/25/18 10:24 Dose: 250 mg Lorazepam (Ativan) 1 mg IVP Q4H PRN; Protocol PRN Reason: Agitation Stop: 12/21/18 08:08 Last Admin: 10/25/18 20:11 Dose: 1 mg Magnesium Hydroxide (Milk Of Magnesia) 30 ml PO HS PRN PRN Reason: Constipation Stop: 12/20/18 23:47 Metoprolol Tartrate (Lopressor) 25 mg PO Q12HR ELLYN Stop: 12/20/18 23:44 Last Admin: 10/25/18 22:29 Dose: Not Given Miscellaneous (Vte Chemical Prophylaxis Screen/ Admission) 1 ea MC PRN PRN PRN Reason: PROTOCOL Stop: 12/21/18 09:00 Mupirocin (Bactroban Oint) 1 appl NS BID [facility] Stop: 10/27/18 17:01 Last Admin: 10/25/18 18:43 Dose: 1 appl Sodium Phosphate (Fleet Enema) 135 ml RC Q48H PRN PRN Reason: IF DULCOLAX INEFFECTIVE Stop: 12/20/18 23:47 General: no acute distress, cachectic HEENT: atraumatic, normocephalic, PERRLA, EOMI Neck: supple, no thyromegaly Cardiovascular: S1S2, regular Lungs: clear to auscultation bilaterally, clear to percussion Abdomen: soft, no tender, no distended Extremities: no cyanosis, no clubbing, no edema Neurological: awake, alert, oriented Skin: intact Infectious Disease Assmt/Plan - Problem List Patient Problems: All Active Problems ABNORMAL LABORATORY FINDINGS (HB, HCT) (Acute) - Assessment Assessment: 1. Urinary tract infection. 2. MRSA colonization. 3. Right upper lung mass, most likely malignancy. 4. Hypertension. 5. Anemia. Stool for occult blood negative. 6. Dementia. - Plan Plan: Continue levaquin 250 mg po daily for total 7 days. Nutritional Asmnt/Malnutr-PDOC - Dietary Evaluation Malnutrition Findings (Please click <Entered> for more info): Nutritional Asmnt/Malnutrition Start: 10/22/18 11: 28 Text: Status: Complete Freq: Protocol: Document 10/22/18 11:28 MMULHERN (Rec: 10/22/18 11:44 BIANCA ANTOINETTE- [email or web address]) Nutritional Asmnt/Malnutrition Patient General Information Nutritional Screening High Risk Diagnosis Anemia Pertinent Medical Hx/Surgical Hx HTN, osteoarthritis, dementia Subjective Information Patient with 1:1 sitter. Per BUSINESS INFORMATION CONSULTANT, patient has a good appetite and eating 100% of meals. Current Diet Order/ Nutrition Support 2gm Sodium Chopped Patient / S.O Not Indicated Pertinent Medications dulcolax, D5-0.45NS @50 ml/hr, MOM, Fleet enema Pertinent Labs (10/22) Ca 10.6 (10/21) Albumin 3.1 Nutritional Hx/Data Height 1.65 m Height (Calculated Centimeters) 165.1 Current Weight (lbs) 42.638 kg Weight (Calculated Kilograms) 42.6 Weight (Calculated Grams) 43794.7 [place] Body Weight 125 % [place] Body Weight 75 Body Mass Index (BMI) 15.6 Recent Weight Change No Weight Status Underweight GI Symptoms GI Symptoms None Last BM none noted in EMR since admission Difficult in: None Food Allergies No Cultural/Ethnic/Oriental Orthodox Belief None indicated Usual diet at home unknown Skin Integrity/Comment: Meredith Reaves Current %PO Good (75-100%) Estimated Nutritional Goals BEE in Kcals: Adj wt of IBW Calories/Kcals/Kg 56.8 IBW 25-30 kcal/kg Kcals Calculated ~7398-9145 kcal/day Protein: Adj wt of IBW Protein g/k.8 gm/kg using IBW Protein Calculated ~45-55 gm/day Fluid: ml ~5824-9407 ml/day (1 ml/kcal) Nutritional Problem 1. Problem Problem Underweight related to Etiology possible inadequate intake aeb Signs/Symptoms: BMI 15.6 Intervention/Recommendation Comments 1. Continue 2gm sodium, chopped diet as tolerated by patient due to HTN. 2. Encourage oral intake and provide assistance with meals as needed. 3. Will hold off on supplements at this time even with low BMI due to patient's adequate oral intake and good appetite. Expected Outcomes/Goals Expected Outcomes/Goals Oral intake >75% of meals, weight gain toward IBW, nutrition related labs WNL F/U MR 10/25-
--- NOTE | 2018-10-26 07:44 | Progress Notes ---
DATE: 10/26/2018 SUBJECTIVE: Chart was reviewed and the patient interviewed. Also discussed the patient's condition with the staff and reviewed the records and labs. The patient still has episodes of irritability and agitation and the patient is having episodes of continuous talking with no sense and incoherent. The patient also still has episodes of agitation and irritability. Also, still having mood swings. The patient also still needs lots of redirections. Otherwise, the patient continued to compliant with taking medications and with her treatment. ASSESSMENT: Still confused and agitated. TREATMENT PLAN: Continue to monitor her behavior and her condition closely. Also, we will start the patient on Seroquel, on dose of 12.5 mg in the morning and 25 mg at bedtime. Also, we will continue to work on her behavior and her agitation and continue to follow up. JOB# [id number]
[2018-10-26] MEDS: Heparin Sod 5,000Units/ML 5,000 UNITS/ML VIAL SUBQ SCH ×2 (08:16→20:09)
[2018-10-26] MEDS: Multivitamin w/ Minerals Tab PO SCH (08:18)
--- NOTE | 2018-10-26 08:49 | GI Progress Note ---
Subjective - Review of Systems Service Date: 10/26/18 Events since last encounter: No events Subjective: No active complaints Objective - Results Result Diagrams: 10/23/18 06:10 10/23/18 06:10 Recent Labs: Laboratory Last Values WBC 5.4 Th/cmm (4.8-10.8) 10/23/18 06:10 RBC 4.14 Mil/cmm (3.80-5.10) 10/23/18 06:10 Hgb 8.7 gm/dL (12-16) L 10/23/18 06:10 Hct 27.8 % (41.0-60) L 10/23/18 06:10 MCV 67.2 fl (81-100) L 10/23/18 06:10 MCH 21.0 pg (27.0-31.0) L 10/23/18 06:10 MCHC Differential 31.2 pg (28.0-36.0) 10/23/18 06:10 RDW 17.5 % (11.5-20.0) 10/23/18 06:10 Plt Count 527 Th/cmm (150-400) H 10/23/18 06:10 MPV 8.7 fl 10/23/18 06:10 Neutrophils % 45.7 % (40.0-80.0) 10/23/18 06:10 Lymphocytes % 44.7 % (20.0-50.0) 10/23/18 06:10 Monocytes % 8.2 % (2.0-10.0) 10/23/18 06:10 Eosinophils % 0.6 % (0.0-5.0) 10/23/18 06:10 Basophils % 0.8 % (0.0-2.0) 10/23/18 06:10 Total Retics Counted 0.5 % (0.5-1.5) 10/22/18 06:25 Absolute Retic 19.8 Th/cmm 10/22/18 06:25 Corrected Retic Count 0.3 % (0.5-1.5) L 10/22/18 06:25 Haptoglobin 389 mg/dL (34-200) H 10/22/18 06:25 PT 10.8 SECONDS (9.5-11.5) 10/22/18 06:25 INR 1.04 (0.5-1.4) 10/22/18 06:25 PTT (Actin FS) 27.4 SECONDS (26.0-38.0) 10/22/18 06:25 Sodium 142 mEq/L (136-145) 10/23/18 06:10 Potassium 4.1 mEq/L (3.5-5.1) 10/23/18 06:10 Chloride 111 mEq/L (98-107) H 10/23/18 06:10 Carbon Dioxide 24.0 mEq/L (21.0-31.0) 10/23/18 06:10 Anion Gap 11.1 (7.0-16.0) 10/23/18 06:10 BUN 19 mg/dL (7-25) 10/23/18 06:10 Creatinine 0.7 mg/dL (0.6-1.2) 10/23/18 06:10 Est GFR ( Amer) > 60.0 ml/min (>90) 10/23/18 06:10 Est GFR (Non-Af Amer) > 60.0 ml/min 10/23/18 06:10 BUN/Creatinine Ratio 27.1 10/23/18 06:10 Glucose 99 mg/dL (70-105) 10/23/18 06:10 Whole Bld Lactic Acid 1.40 mmol/L (0.60-1.99) 10/21/18 14:45 Calcium 11.2 mg/dL (8.6-10.3) H 10/23/18 06:10 Iron 10 ug/dL (27-139) L 10/22/18 06:25 TIBC 179 ug/dL (250-450) L 10/22/18 06:25 Iron Saturation 6 % (15-55) L 10/22/18 06:25 Unsaturated IBC 169 ug/dL (118-369) 10/22/18 06:25 Ferritin 269 ng/mL (15-150) H 10/22/18 06:25 Total Bilirubin 0.4 mg/dL (0.3-1.0) 10/23/18 06:10 AST 17 U/L (13-39) 10/23/18 06:10 ALT 14 U/L (7-52) 10/23/18 06:10 Alkaline Phosphatase 142 U/L (34-104) H 10/23/18 06:10 Creatine Kinase 11 U/L (30-223) L 10/21/18 14:45 Troponin I < 0.01 ng/mL (0.01-0.05) L 10/21/18 14:45 Total Protein 8.0 gm/dL (6.0-8.3) 10/23/18 06:10 Albumin 3.0 gm/dL (3.7-5.3) L 10/23/18 06:10 Globulin 5.0 gm/dL 10/23/18 06:10 Albumin/Globulin Ratio 0.6 (1.0-1.8) L 10/23/18 06:10 Triglycerides 77 mg/dL (<150) 10/22/18 06:25 Cholesterol 90 mg/dL (<200) 10/22/18 06:25 LDL Cholesterol Direct 53 mg/dL (75-193) L 10/22/18 06:25 HDL Cholesterol 27 mg/dL (23-92) 10/22/18 06:25 Vitamin B12 434 pg/mL (232-1245) 10/22/18 06:25 Folic Acid 17.9 ng/mL (>3.0) 10/22/18 06:25 Free T4 2.74 ng/dL (0.82-1.77) H 10/23/18 06:10 Free T3 6.3 pg/mL (2.0-4.4) H 10/23/18 06:10 TSH 0.02 uIU/ml (0.34-5.60) L 10/22/18 06:25 Urine Source CATH 10/21/18 15:20 Urine Color YELLOW 10/21/18 15:20 Urine Clarity CLEAR (CLEAR) 10/21/18 15:20 Urine pH 6.0 (4.6 - 8.0) 10/21/18 15:20 Ur Specific [place] 1.020 (1.005-1.030) 10/21/18 15:20 Urine Protein NEGATIVE mg/dL (NEGATIVE) 10/21/18 15:20 Urine Glucose (UA) NEGATIVE mg/dL (NEGATIVE) 10/21/18 15:20 Urine Ketones NEGATIVE mg/dL (NEGATIVE) 10/21/18 15:20 Urine Blood TRACE (NEGATIVE) 10/21/18 15:20 Urine Nitrate NEGATIVE (NEGATIVE) 10/21/18 15:20 Urine Bilirubin NEGATIVE (NEGATIVE) 10/21/18 15:20 Urine Urobilinogen 1.0 E.U./dL (0.2 - 1.0) 10/21/18 15:20 Ur Leukocyte Esterase TRACE (NEGATIVE) H 10/21/18 15:20 Urine RBC 2-5 /hpf (0-5) 10/21/18 15:20 Urine WBC 2-5 /hpf (0-5) 10/21/18 15:20 Ur Epithelial Cells MODERATE /lpf (FEW) 10/21/18 15:20 Urine Bacteria 1+ /hpf (NONE SEEN) H 10/21/18 15:20 Stool Occult Blood NEGATIVE (NEGATIVE) 10/24/18 10:45 - Physical Exam Vitals and I&O: Vital Signs Temp 97 F 10/26/18 01:00 Pulse 75 10/26/18 01:00 Resp 18 10/26/18 01:00 BP 136/74 10/26/18 01:00 Pulse Ox 95 10/26/18 01:00 Intake & Output 10/25/18 10/26/18 10/26/18 18:59 06:59 18:59 Weight (lbs) 45.359 kg 43.908 kg Other: # Voids 2 Weight Source Bedscale Bedscale Active Medications: Current Medications Acetaminophen (Tylenol) 650 mg PO Q6H PRN PRN Reason: MILD PAIN OR TEMP > 100.5 Stop: 12/21/18 00:39 Last Admin: 10/24/18 00:56 Dose: 650 mg Bisacodyl (Dulcolax 10 Mg Supp) 10 mg RC DAILY PRN PRN Reason: IF MOM INEFFECTIVE Stop: 12/20/18 23:46 Donepezil HCl (Aricept) 10 mg PO HS ELLYN Stop: 12/21/18 20:59 Last Admin: 10/25/18 20:11 Dose: 10 mg Heparin Sodium (Porcine) (Heparin) 5,000 units SUBQ Q12HR ELLYN Stop: 12/21/18 08:59 Last Admin: 10/26/18 08:16 Dose: Not Given Dextrose/Sodium Chloride (D5-0.45ns) 1,000 mls @ 50 mls/hr IV .Q20H ELLYN Stop: 12/20/18 21:38 Last Admin: 10/25/18 07:02 Dose: Not Given Levofloxacin (Levaquin) 250 mg PO DAILY [facility] Stop: 12/24/18 08:59 Last Admin: 10/26/18 08:18 Dose: Not Given Lorazepam (Ativan) 1 mg IVP Q4H PRN; Protocol PRN Reason: Agitation Stop: 12/21/18 08:08 Last Admin: 10/25/18 20:11 Dose: 1 mg Magnesium Hydroxide (Milk Of Magnesia) 30 ml PO HS PRN PRN Reason: Constipation Stop: 12/20/18 23:47 Metoprolol Tartrate (Lopressor) 25 mg PO Q12HR ELLYN Stop: 12/20/18 23:44 Last Admin: 10/26/18 08:19 Dose: Not Given Miscellaneous (Vte Chemical Prophylaxis Screen/ Admission) 1 ea MC PRN PRN PRN Reason: PROTOCOL Stop: 12/21/18 09:00 Mupirocin (Bactroban Oint) 1 appl NS BID [facility] Stop: 10/27/18 17:01 Last Admin: 10/26/18 08:28 Dose: 1 appl Quetiapine Fumarate (Seroquel) 12.5 mg PO DAILY [facility]; Protocol Stop: 12/25/18 08:59 Last Admin: 10/26/18 08:19 Dose: Not Given Quetiapine Fumarate (Seroquel) 25 mg PO HS ELLYN; Protocol Stop: 12/25/18 20:59 Sodium Phosphate (Fleet Enema) 135 ml RC Q48H PRN PRN Reason: IF DULCOLAX INEFFECTIVE Stop: 12/20/18 23:47 General: Alert, No acute distress Neck: Supple Cardiovascular: Regular rate, Normal S1 Lungs: Clear to auscultation Abdomen: Bowel sounds, Soft, no Tender, no Mass Assessment/Plan - Problem List Patient Problems: All Active Problems ABNORMAL LABORATORY FINDINGS (HB, HCT) (Acute) - Assessment Assessment: 1. Severe anemia - Plan Plan: 1. Severe anemia Will need GI w/u after the lung biopsy and if she is willing to take the prep and consent is available 2. Lung mass For biopsy whenever consent issue is resolved
[2018-10-26 11:21] LABS: HEMATOCRIT 26.4 % (41.0-60); HEMOGLOBIN 8.3 gm/dL (12-16); MEAN CORPUSCULAR HGB CONC 31.6 pg (28.0-36.0); MEAN PLATELET VOLUME 8.5 fl; PLATELET COUNT 555 Th/cmm (150-400); RED BLOOD COUNT 3.98 Mil/cmm (3.80-5.10); RED CELL DISTRIBUTION WIDTH 16.9 % (11.5-20.0); WHITE BLOOD COUNT 6.8 Th/cmm (4.8-10.8)
[2018-10-26 11:27] LABS: INR 1.05 (0.5-1.4); PROTHROMBIN TIME (TEST) 10.9 SECONDS (9.5-11.5)
--- NOTE | 2018-10-26 11:36 | Progress Notes ---
DATE: 10/25/2018 SUBJECTIVE: The patient is confused, no distress. OBJECTIVE: VITAL SIGNS: Temperature 98.2, pulse 82, respirations 20, blood pressure 115/60, saturation 96% . CHEST: Good breath sounds. No wheezing, no rales, no crackles. HEART: Regular rate and rhythm. No murmurs. ABDOMEN: Soft. EXTREMITIES: No edema. IMPRESSION: 1. Lung mass. 2. Psychosis. PLAN: Continue supportive care, awaiting social service agency director decision and ____ decision about biopsy with consent. I am not sure how much the patient will be cooperative with a procedure. JOB# [id number]
--- NOTE | 2018-10-26 13:19 | Internal Medicine Prog Note ---
Internal Medicine Subjective - Subjective Service Date: 10/26/18 Patient seen and examined:: with staff, chart reviewed Patient is:: awake, confused, other (pt admitted with altered level of consciousness ,with abnormal ct of chest lung mass) Patient Complaints of:: other (weakness.) Per staff patient has:: no adverse event, no episodes of fall Internal Medicine Objective - Results Result Diagrams: 10/26/18 10:25 10/23/18 06:10 Recent Labs: Laboratory Last Values WBC 6.8 Th/cmm (4.8-10.8) 10/26/18 10:25 RBC 3.98 Mil/cmm (3.80-5.10) 10/26/18 10:25 Hgb 8.3 gm/dL (12-16) L 10/26/18 10:25 Hct 26.4 % (41.0-60) L 10/26/18 10:25 MCV 67.2 fl (81-100) L 10/23/18 06:10 MCH 21.0 pg (27.0-31.0) L 10/26/18 10:25 MCHC Differential 31.6 pg (28.0-36.0) 10/26/18 10:25 RDW 16.9 % (11.5-20.0) 10/26/18 10:25 Plt Count 555 Th/cmm (150-400) H 10/26/18 10:25 MPV 8.5 fl 10/26/18 10:25 Add Manual Diff YES 10/26/18 10:25 Neutrophils % DESIGN ENG 10/26/18 10:25 Lymphocytes % DESIGN ENG 10/26/18 10:25 Monocytes % DESIGN ENG 10/26/18 10:25 Eosinophils % DESIGN ENG 10/26/18 10:25 Basophils % DESIGN ENG 10/26/18 10:25 Total Retics Counted 0.5 % (0.5-1.5) 10/22/18 06:25 Absolute Retic 19.8 Th/cmm 10/22/18 06:25 Corrected Retic Count 0.3 % (0.5-1.5) L 10/22/18 06:25 Haptoglobin 389 mg/dL (34-200) H 10/22/18 06:25 PT 10.9 SECONDS (9.5-11.5) 10/26/18 10:25 INR 1.05 (0.5-1.4) 10/26/18 10:25 PTT (Actin FS) 26.9 SECONDS (26.0-38.0) 10/26/18 10:25 Sodium 142 mEq/L (136-145) 10/23/18 06:10 Potassium 4.1 mEq/L (3.5-5.1) 10/23/18 06:10 Chloride 111 mEq/L (98-107) H 10/23/18 06:10 Carbon Dioxide 24.0 mEq/L (21.0-31.0) 10/23/18 06:10 Anion Gap 11.1 (7.0-16.0) 10/23/18 06:10 BUN 19 mg/dL (7-25) 10/23/18 06:10 Creatinine 0.7 mg/dL (0.6-1.2) 10/23/18 06:10 Est GFR ( Amer) > 60.0 ml/min (>90) 10/23/18 06:10 Est GFR (Non-Af Amer) > 60.0 ml/min 10/23/18 06:10 BUN/Creatinine Ratio 27.1 10/23/18 06:10 Glucose 99 mg/dL (70-105) 10/23/18 06:10 Whole Bld Lactic Acid 1.40 mmol/L (0.60-1.99) 10/21/18 14:45 Calcium 11.2 mg/dL (8.6-10.3) H 10/23/18 06:10 Iron 10 ug/dL (27-139) L 10/22/18 06:25 TIBC 179 ug/dL (250-450) L 10/22/18 06:25 Iron Saturation 6 % (15-55) L 10/22/18 06:25 Unsaturated IBC 169 ug/dL (118-369) 10/22/18 06:25 Ferritin 269 ng/mL (15-150) H 10/22/18 06:25 Total Bilirubin 0.4 mg/dL (0.3-1.0) 10/23/18 06:10 AST 17 U/L (13-39) 10/23/18 06:10 ALT 14 U/L (7-52) 10/23/18 06:10 Alkaline Phosphatase 142 U/L (34-104) H 10/23/18 06:10 Creatine Kinase 11 U/L (30-223) L 10/21/18 14:45 Troponin I < 0.01 ng/mL (0.01-0.05) L 10/21/18 14:45 Total Protein 8.0 gm/dL (6.0-8.3) 10/23/18 06:10 Albumin 3.0 gm/dL (3.7-5.3) L 10/23/18 06:10 Globulin 5.0 gm/dL 10/23/18 06:10 Albumin/Globulin Ratio 0.6 (1.0-1.8) L 10/23/18 06:10 Triglycerides 77 mg/dL (<150) 10/22/18 06:25 Cholesterol 90 mg/dL (<200) 10/22/18 06:25 LDL Cholesterol Direct 53 mg/dL (75-193) L 10/22/18 06:25 HDL Cholesterol 27 mg/dL (23-92) 10/22/18 06:25 Vitamin B12 434 pg/mL (232-1245) 10/22/18 06:25 Folic Acid 17.9 ng/mL (>3.0) 10/22/18 06:25 Free T4 2.74 ng/dL (0.82-1.77) H 10/23/18 06:10 Free T3 6.3 pg/mL (2.0-4.4) H 10/23/18 06:10 TSH 0.02 uIU/ml (0.34-5.60) L 10/22/18 06:25 Urine Source CATH 10/21/18 15:20 Urine Color YELLOW 10/21/18 15:20 Urine Clarity CLEAR (CLEAR) 10/21/18 15:20 Urine pH 6.0 (4.6 - 8.0) 10/21/18 15:20 Ur Specific [place] 1.020 (1.005-1.030) 10/21/18 15:20 Urine Protein NEGATIVE mg/dL (NEGATIVE) 10/21/18 15:20 Urine Glucose (UA) NEGATIVE mg/dL (NEGATIVE) 10/21/18 15:20 Urine Ketones NEGATIVE mg/dL (NEGATIVE) 10/21/18 15:20 Urine Blood TRACE (NEGATIVE) 10/21/18 15:20 Urine Nitrate NEGATIVE (NEGATIVE) 10/21/18 15:20 Urine Bilirubin NEGATIVE (NEGATIVE) 10/21/18 15:20 Urine Urobilinogen 1.0 E.U./dL (0.2 - 1.0) 10/21/18 15:20 Ur Leukocyte Esterase TRACE (NEGATIVE) H 10/21/18 15:20 Urine RBC 2-5 /hpf (0-5) 10/21/18 15:20 Urine WBC 2-5 /hpf (0-5) 10/21/18 15:20 Ur Epithelial Cells MODERATE /lpf (FEW) 10/21/18 15:20 Urine Bacteria 1+ /hpf (NONE SEEN) H 10/21/18 15:20 Stool Occult Blood NEGATIVE (NEGATIVE) 10/24/18 10:45 - Physical Exam Vitals and I&O: Vital Signs Temp 97.6 F 10/26/18 11:51 Pulse 90 10/26/18 11:51 Resp 18 10/26/18 11:51 BP 134/69 10/26/18 11:51 Pulse Ox 95 10/26/18 11:51 Intake & Output 10/25/18 10/26/18 10/26/18 18:59 06:59 18:59 Weight (lbs) 45.359 kg 43.908 kg Other: # Voids 2 Weight Source Bedscale Bedscale Active Medications: Current Medications Acetaminophen (Tylenol) 650 mg PO Q6H PRN PRN Reason: MILD PAIN OR TEMP > 100.5 Stop: 12/21/18 00:39 Last Admin: 10/24/18 00:56 Dose: 650 mg Bisacodyl (Dulcolax 10 Mg Supp) 10 mg RC DAILY PRN PRN Reason: IF MOM INEFFECTIVE Stop: 12/20/18 23:46 Donepezil HCl (Aricept) 10 mg PO HS ELLYN Stop: 12/21/18 20:59 Last Admin: 10/25/18 20:11 Dose: 10 mg Heparin Sodium (Porcine) (Heparin) 5,000 units SUBQ Q12HR ELLYN Stop: 12/21/18 08:59 Last Admin: 10/26/18 08:16 Dose: Not Given Dextrose/Sodium Chloride (D5-0.45ns) 1,000 mls @ 50 mls/hr IV .Q20H ELLYN Stop: 12/20/18 21:38 Last Admin: 10/25/18 07:02 Dose: Not Given Levofloxacin (Levaquin) 250 mg PO DAILY ELLYN Stop: 12/24/18 08:59 Last Admin: 10/26/18 08:18 Dose: Not Given Lorazepam (Ativan) 1 mg IVP Q4H PRN; Protocol PRN Reason: Agitation Stop: 12/21/18 08:08 Last Admin: 10/25/18 20:11 Dose: 1 mg Magnesium Hydroxide (Milk Of Magnesia) 30 ml PO HS PRN PRN Reason: Constipation Stop: 12/20/18 23:47 Metoprolol Tartrate (Lopressor) 25 mg PO Q12HR ELLYN Stop: 12/20/18 23:44 Last Admin: 10/26/18 08:19 Dose: Not Given Miscellaneous (Vte Chemical Prophylaxis Screen/ Admission) 1 ea MC PRN PRN PRN Reason: PROTOCOL Stop: 12/21/18 09:00 Mupirocin (Bactroban Oint) 1 appl NS BID ELLYN Stop: 10/27/18 17:01 Last Admin: 10/26/18 08:28 Dose: 1 appl Quetiapine Fumarate (Seroquel) 12.5 mg PO DAILY [facility]; Protocol Stop: 12/25/18 08:59 Last Admin: 10/26/18 08:19 Dose: Not Given Quetiapine Fumarate (Seroquel) 25 mg PO HS ELLYN; Protocol Stop: 12/25/18 20:59 Sodium Phosphate (Fleet Enema) 135 ml RC Q48H PRN PRN Reason: IF DULCOLAX INEFFECTIVE Stop: 12/20/18 23:47 Physical Exam: 63 female patient has been having generalized weakness and fatigue. Patient has severe anemia which she is currently being treated for and will continue to be monitored. General: weak, other (awake, dis-oriented, no new events reported.) HEENT: NC/AT Neck: Supple Lungs: CTAB Cardiovascular: RRR, Normal S1, Normal S2 Abdomen: soft, non-tender Extremities: clear Neurological: no change, muscle weakness Internal Medicine Assmt/Plan - Assessment Assessment: dehydration lung mass r/o lung ca copd severe anemia dementia - Plan Plan: psych support as per order sheet Nutritional Asmnt/Malnutr-PDOC - Dietary Evaluation Malnutrition Findings (Please click <Entered> for more info): Nutritional Asmnt/Malnutrition Start: 10/22/18 11: 28 Text: Status: Complete Freq: Protocol: Document 10/22/18 11:28 BIANCA (Rec: 10/22/18 11:44 JOSE EDUARDOYASMIN CURRY- [email or web address]) Nutritional Asmnt/Malnutrition Patient General Information Nutritional Screening High Risk Diagnosis Anemia Pertinent Medical Hx/Surgical Hx HTN, osteoarthritis, dementia Subjective Information Patient with 1:1 sitter. Per BUSGIRL, patient has a good appetite and eating 100% of meals. Current Diet Order/ Nutrition Support 2gm Sodium Chopped Patient / S.O Not Indicated Pertinent Medications dulcolax, D5-0.45NS @50 ml/hr, MOM, Fleet enema Pertinent Labs (10/22) Ca 10.6 (10/21) Albumin 3.1 Nutritional Hx/Data Height 1.65 m Height (Calculated Centimeters) 165.1 Current Weight (lbs) 42.638 kg Weight (Calculated Kilograms) 42.6 Weight (Calculated Grams) 72370.7 [place] Body Weight 125 % Flora Body Weight 75 Body Mass Index (BMI) 15.6 Recent Weight Change No Weight Status Underweight GI Symptoms GI Symptoms None Last BM none noted in EMR since admission Difficult in: None Food Allergies No Cultural/Ethnic/Yazdanism Belief None indicated Usual diet at home unknown Skin Integrity/Comment: [place] 16 Current %PO Good (75-100%) Estimated Nutritional Goals BEE in Kcals: Adj wt of IBW Calories/Kcals/Kg 56.8 IBW 25-30 kcal/kg Kcals Calculated ~6824-3312 kcal/day Protein: Adj wt of IBW Protein g/k.8 gm/kg using IBW Protein Calculated ~45-55 gm/day Fluid: ml ~8996-2381 ml/day (1 ml/kcal) Nutritional Problem 1. Problem Problem Underweight related to Etiology possible inadequate intake aeb Signs/Symptoms: BMI 15.6 Intervention/Recommendation Comments 1. Continue 2gm sodium, chopped diet as tolerated by patient due to HTN. 2. Encourage oral intake and provide assistance with meals as needed. 3. Will hold off on supplements at this time even with low BMI due to patient's adequate oral intake and good appetite. Expected Outcomes/Goals Expected Outcomes/Goals Oral intake >75% of meals, weight gain toward IBW, nutrition related labs WNL F/U MR 10/25-
[2018-10-26 13:21] LABS: BAND NEUTROPHILE 0 % (0-10); BASOPHIL 0 % (0-3); EOSINOPHIL 0 % (0-5); LYMPHOCYTE 28 % (20-50); MONOCYTE 6 % (2-10); NEUTROPHILS 66 % (40-80)
[2018-10-26 13:26] LABS: MEAN CELL VOLUME 66.4 fl (81-100)
[2018-10-26 13:27] LABS: PLATELET ESTIMATE INCREASED PLATELETS (NORMAL)
[2018-10-26 15:47] LABS: ANION GAP 14.9 (7.0-16.0); BUN - UREA NITROGEN 13 mg/dL (7-25); CALCIUM SERUM 10.7 mg/dL (8.6-10.3); CHLORIDE 111 mEq/L (98-107); CREATININE - SERUM 0.7 mg/dL (0.6-1.2); GFR AFRICAN-AMERICAN > 60.0 ml/min (>90); GFR NON AFRICAN-AMERICAN > 60.0 ml/min; GLUCOSE 102 mg/dL (70-105); POTASSIUM SERUM 3.9 mEq/L (3.5-5.1); SODIUM SERUM 141 mEq/L (136-145)
--- NOTE | 2018-10-26 22:16 | Progress Notes ---
DATE: 10/26/2018 PULMONARY PROGRESS NOTE SUBJECTIVE: The patient appears to be doing okay, in no distress. PHYSICAL EXAMINATION: VITAL SIGNS: Temperature is 97.0, pulse 96, respirations 18, blood pressure 112/61, saturation 95% on room air. CHEST: Good breath sounds. No wheezing or crackles. HEART: Regular rate and rhythm. ABDOMEN: Soft. EXTREMITIES: No edema. LABORATORY DATA: WBC 6.8, hemoglobin 8.3, hematocrit 26.4. IMPRESSION: 1. Lung mass. 2. Possible chronic obstructive pulmonary disease. 3. Confusion and psychosis. PLAN: 1. CT-guided biopsy for further evaluation. 2. Social service consultation and followup. JOB# [id number]
== END 2018-10-26 21:05 | disposition short-term general hospital (02) | DRG 720 ==
LOC: ER 14:06 → MSI 18:30
PROVIDERS: ADMIT Internal Medicine; ATTEND Internal Medicine
DX: A41.9 Sepsis, unspecified organism (principal); G93.41 Metabolic encephalopathy; C34.90 Malignant neoplasm of unspecified part of unspecified bronchus or lung; E44.0 Moderate protein-calorie malnutrition; E86.0 Dehydration; F03.90 Unspecified dementia, unspecified severity, without behavioral disturbance, psychotic disturbance, mood disturbance, and anxiety; E83.52 Hypercalcemia; D64.9 Anemia, unspecified; J44.9 Chronic obstructive pulmonary disease, unspecified; I10 Essential (primary) hypertension; F29 Unspecified psychosis not due to a substance or known physiological condition; R91.8 Other nonspecific abnormal finding of lung field; N39.0 Urinary tract infection, site not specified; R31.9 Hematuria, unspecified; M19.90 Unspecified osteoarthritis, unspecified site; Z82.49 Family history of ischemic heart disease and other diseases of the circulatory system; Z22.322 Carrier or suspected carrier of Methicillin resistant Staphylococcus aureus; Z79.899 Other long term (current) drug therapy; Z68.1 Body mass index [BMI] 19.9 or less, adult
CPT/HCPCS: 36415-UA; 71045-TC; 71250-TC; 80048-TC; 80053-TC; 80061-TC; 81001-TC; 82270-TC; 82550-TC; 82607-90; 82728-90; 82746-90; 83010-90; 83540-90; 83550-90; 83605; 84436-TC; 84439-90; 84443-TC; 84479-90; 84484-TC; 85007-TC; 85025-TC; 85044-TC; 85610-TC; 85730-TC; 87086-90; 93005; 96375; J0696; J1200; J1630; J1644; J2060; J7030; Z7610